=== PATIENT | male | born 1950 | race Caucasian/White ===

== ENCOUNTER 2016-11-23 18:26 | Inpatient (IN) | payer OTHER, MEDICARE ==
[2016-11-23] MEDS ORDERED: NS 0.9% 1000 ML* 2,000 ML IV ONE (18:39)
[2016-11-23] MEDS ORDERED: Morphine INJ* 4 MG/ML 1 ML SYRINGE IV ONE (18:51)
[2016-11-23] MEDS ORDERED: Ketorolac INJ* 30 MG/ML 1 ML VIAL IV PUSH ONE (18:51)
--- NOTE | 2016-11-23 18:53 | ED ---
GI/ HPI - HPI Summary HPI Summary: 66M PMH of DM and HTN presents with left sided flank pain since 8:30 this morning. He states pain is moving down his left side. He denies any nausea or vomiting. He was seen at [facility] and transferred here for further evaluation. The xray at [facility] according to the report shows a 12mm calcified focus within left hemipelvis. could represent phlebolith although left uvj stone cannot be complete excluded. He denies any n/v/d/c. He denies any hematuira, urgency, frequnecy, or dysuria. He has previous surgery "for a blockage of his urine." He does not have a history of kidney tones and has not seen a urologist. He has not taken any pain medication yet. His pain is 5/ 10. His last meal was at 11 today. His stent was placed about 10 years ago and has been stable since. - History of Current Complaint Chief Complaint: EDUrogenitalProblems Time Seen by Provider: 11/23/16 18:37 Stated Complaint: ABD AND LOWER BACK PAIN Pain Intensity: 8 - Allergy/Home Medications Allergies/Adverse Reactions: Allergies Allergy/AdvReac Type Severity Reaction Status Date / Time No Known Allergies Allergy Verified 11/23/16 19:02 Home Medications: Home Medications Atorvastatin* [Lipitor 80 MG*] 80 mg PO DAILY 11/23/16 [History Confirmed ] Cyanocobalamin [B12] 1,000 mcg PO DAILY 11/23/16 [History Confirmed 11/23/16] Finasteride [Proscar] 1 tab PO DAILY 11/23/16 [History Confirmed 11/23/16] Metformin HCl [Metformin HCl ER] 2 tab PO BID 11/23/16 [History Confirmed ] Metoprolol Succinate XL TAB* [Toprol XL TAB*] 100 mg PO DAILY 11/23/16 [History Confirmed 11/23/16] Multiple Vitamin [Multivitamins] 1 cap PO DAILY 11/23/16 [History Confirmed ] Bim-3 Fatty Acids [Fish Oil 500 mg] 1,500 mg PO DAILY 11/23/16 [History Confirmed 11/23/16] amLODIPine/Benazepril 10(NF [Lotrel 10(NF)] 1 tab PO DAILY 11/23/16 [ History Confirmed 11/23/16] PMH/Surg Hx/FS Hx/Imm Hx Endocrine/Hematology History: Reports: Hx Diabetes Denies: Hx Anticoagulant Therapy Cardiovascular History: Reports: Hx Hypertension, Other Cardiovascular Problems/ Disorders - stent placement Infectious Disease History: No Infectious Disease History: Denies: Traveled Outside the [place] in Last 30 Days - Family History Known Family History: Positive: Cardiac Disease - Social History Alcohol Use: Occasionally Substance Use Type: Reports: None Smoking Status (MU): Never Smoked Tobacco Review of Systems Negative: Fever Negative: Chest Pain Negative: Shortness Of Breath Positive: Abdominal Pain. Negative: Vomiting, Diarrhea, Nausea Positive: flank pain All Other Systems Reviewed And Are Negative: Yes Physical Exam Triage Information Reviewed: Yes Vital Signs On Initial Exam: Initial Vitals Temp Pulse Resp BP Pulse Ox 96.8 F 64 17 146/79 98 11/23/16 18:29 11/23/16 18:29 11/23/16 18:29 11/23/16 18:29 11/23/16 18:29 Vital Signs Reviewed: Yes Appearance: Positive: Well-Appearing Skin: Positive: Warm, Dry Head/Face: Positive: Normal Head/Face Inspection Eyes: Positive: Normal, EOMI, PRADIP, Conjunctiva Clear ENT: Positive: Normal ENT inspection, Pharynx normal, TMs normal Respiratory/Lung Sounds: Positive: Clear to Auscultation, Breath Sounds Present Cardiovascular: Positive: Normal, RRR Abdomen Description: Positive: Soft, CVA Tenderness (L), Other: - tenderness on left side of abdomen, Bowel Sounds: Positive: Present Diagnostics - Vital Signs Vital Signs Temp Pulse Resp BP Pulse Ox 11/23/16 18:45 97.4 F 62 21 131/72 97 11/23/16 18:29 96.8 F 64 17 146/79 98 - Laboratory Result Diagrams: 11/23/16 18:57 11/23/16 18:57 Lab Statement: Any lab studies that have been ordered have been reviewed, and results considered in the medical decision making process. - CT abd CT Interpretation: Positive (See Comments) - IMPRESSION: 1. THERE IS A 1 CM CALCULUS AT THE LEFT URETEROVESICAL JUNCTION CAUSING SEVERE HYDRONEPHROSIS. THERE IS AN ADDITIONAL CALCULUS IN THE LEFT KIDNEY. 2. HEPATOSPLENOMEGALY AND HEPATIC STEATOSIS. 3. CHOLELITHIASIS. 4. FINDINGS CONSISTENT WITH OLD GRANULOMATOUS DISEASE IN THE CHEST, LIVER AND SPLEEN. CT Interpretation Completed By: Radiologist Re-Evaluation - Re-Evaluation First Eval Re-Evaluation Time: 20:16 Change: Improved Comment: pain is 2/10. GIGU Course/Dx - Course Course Of Treatment: 66M PMH of DM and HTN presents with left sided flank pain since 8:30 this morning. He states pain is moving down his left side. He denies any nausea or vomiting. He was seen at [facility] and transferred here for further evaluation. The xray at [facility] according to the report shows a 12mm calcified focus within left hemipelvis. could represent phlebolith although left uvj stone cannot be complete excluded. He denies any n/v/d/c. He denies any hematuira, urgency, frequnecy, or dysuria. on exam has CVA tenderness left and LUQ and LLQ pain. spoke with dr burk recommends CT for imaging as xray nonspecfic. Ct shows 1cm calcus at UVJ with severe hydronephrosis. wbc 10.8, u/a blood no infection. Dr Burk recommends admission to get cleared for surgery tomorrow. dr perry agrees to admission. patient understands and agrees with plan. - Diagnoses Differential Diagnoses - Male: Pyelonephritis, Ureteral Calculi, Urinary Tract Infection Provider Diagnoses: Kidney stone - Physician Notifications Discussed Care Of Patient With: dr burk Time Discussed With Above Provider: 20:24 - have hospitalist admit to clear for surgery tomorrow for stone Discharge - Discharge Plan Condition: Stable Disposition: ADMITTED TO [facility]
[2016-11-23 19:05] LABS: Hematocrit 42 % (42-52); Hemoglobin 14.4 g/dl (14.0-18.0); Mean Corpuscular HGB Conc 34 g/dl (31-36); Mean Corpuscular Hemoglobin 31 pg (27-31); Mean Corpuscular Volume 89 fL (80-94); Mean Platelet Volume 9 um3 (7.4-10.4); Red Blood Count 4.71 10^6/ul (4.0-5.4); Red Cell Distribution Width 14 % (10.5-15); White Blood Count 10.8 10^3/ul (3.5-10.8)
[2016-11-23 19:21] LABS: Albumin 4.3 g/dL (3.2-5.2); BUN/Creatinine Ratio 20.7 (8-20); Calcium 9.5 mg/dL (8.6-10.3); EGFR African American 105.9 (>60); EGFR Non-African American 82.3 (>60); Globulin 3.2 g/dL (2-4); Potassium 4.3 mmol/L (3.5-5.0); Total Bilirubin 0.7 mg/dL (0.2-1.0); Total Protein 7.5 g/dL (6.4-8.9)
[2016-11-23 19:38] LABS: Urine Bacteria Absent (Absent); Urine Bilirubin Negative (Negative); Urine Glucose Negative (Negative); Urine Nitrite Negative (Negative)
--- NOTE | 2016-11-23 19:59 | RAD ---
INDICATION: Left-sided flank pain. COMPARISON: There are no prior studies available for comparison. TECHNIQUE: A CT scan of the abdomen and pelvis was performed without intravenous or oral contrast. Contiguous axial sections were obtained from the lung bases through the symphysis pubis. Images were reconstructed in the coronal and sagittal planes. FINDINGS: There are small calcified nodules present in both lower lobes most consistent with old granulomatous disease. There is mild dependent bilateral lower lobe subsegmental atelectasis. No pleural effusion is present. The liver and spleen are enlarged. There are several small calcifications within both the liver and spleen also most consistent with old granulomatous disease. The liver is decreased in attenuation consistent with fatty infiltration. There are small calcified gallstones present. No gallbladder wall thickening or pericholecystic fluid is present. The pancreas appears to be within normal limits. The adrenal glands appear to be within normal limits. There is a calculus in the midportion of the left kidney measuring 0.4 cm in size. The left kidney is enlarged. There is perinephric stranding. There is marked dilatation of the left renal calyces, pelvis and ureter to the level of the ureterovesical junction. At that level there is a 1.0 cm calculus which is causing severe hydronephrosis. There is mild dilatation of the right renal pelvis and dilatation of the distal right ureter although no additional calculi are seen. The aorta is normal in caliber with moderate calcific plaque present. No significant enlarged retroperitoneal lymph nodes are seen. The stomach, small and large bowel appear nondistended. The appendix is within normal limits. There is moderate descending and sigmoid diverticulosis. There is no evidence for diverticulitis or colitis. No free intraperitoneal air or fluid is seen. No significant focal osseous abnormality is seen. IMPRESSION: 1. THERE IS A 1 CM CALCULUS AT THE LEFT URETEROVESICAL JUNCTION CAUSING SEVERE HYDRONEPHROSIS. THERE IS AN ADDITIONAL CALCULUS IN THE LEFT KIDNEY. 2. HEPATOSPLENOMEGALY AND HEPATIC STEATOSIS. 3. CHOLELITHIASIS. 4. FINDINGS CONSISTENT WITH OLD GRANULOMATOUS DISEASE IN THE CHEST, LIVER AND SPLEEN.
[2016-11-23] MEDS ORDERED: Morphine INJ* 2 MG/ML 1 ML SYRINGE IV PRN (20:47)
[2016-11-23] MEDS ORDERED: Ondansetron INJ* 2 MG/ML VIAL IV PRN (20:47)
[2016-11-23] MEDS ORDERED: cefTRIAXone VIAL(*) 1,000 MG in NS 0.9% 50 ML* 50 ML IVPB SCH (20:49)
[2016-11-23] MEDS ORDERED: Dextrose 50% Syringe 50 ML* 25 GM/50 ML SYRINGE IV PUSH PRN (21:07)
[2016-11-23] MEDS: NS 0.9% 1000 ML* 1,000 ML IV SCH (22:19)
[2016-11-23] MEDS: Heparin VIAL(*) 5000 UNITS/ML VIAL (FIVE THOUSAND) SUBCUT SCH (23:59)
--- NOTE | 2016-11-24 01:54 | HP ---
CC: Dr. Stacy Avila; Dr. Prashant Alonzo * HISTORY AND PHYSICAL: DATE OF ADMISSION: 11/23/16 CHIEF COMPLAINT: Flank pain. HISTORY OF PRESENT ILLNESS: The patient is a 66-year-old gentleman who said at 9:30 this morning, he was at [employer] when he started having a " wicked pain" on the left side in his back. It was continuous. At its worse, it was about 8.5/10 in severity. It was always there but moved over from the back to the front. He did not know if there was blood in his urine. He went to [facility] in [place], but unfortunately he had no doctor available to he came over to [facility] for further evaluation. In the ED, the patient does have a CAT scan of the abdomen and pelvis which did show a 1 cm stone with severe hydronephrosis of the left kidney. He denies any fevers or chills. No nausea or vomiting. The pain is under better control now with morphine. PAST MEDICAL HISTORY: Significant for hypertension, hyperlipidemia, diabetes mellitus, coronary artery disease, status post stent placement over 10 years ago. PAST SURGICAL HISTORY: Significant for carpal tunnel surgery, bilateral rotator cuff repair of his right shoulder, problem with requiring urethral surgery years ago. CURRENT MEDICATIONS: As follows: 1. Metformin ER 500 mg 2 tabs twice daily. 2. Finasteride 5 mg daily. 3. Vitamin B12 1000 mcg daily. 4. Lipitor 80 mg daily. 5. Multivitamin 1 capsule daily. 6. Metoprolol succinate 100 mg daily. 7. Amlodipine/benazepril 10/40 one tablet daily. 8. [place]-3 fatty acid 1500 mg daily. ALLERGIES: He has no known drug allergies. FAMILY HISTORY: Mother at 73 of a CVA. Father at 73 of a broken heart. SOCIAL HISTORY: No tobacco. Social alcohol. No recreational drug use. 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 He is . He has 3 children. His , Leslie Moreno, is his healthcare proxy. REVIEW OF SYSTEMS: A 14-point review of systems was completed with the patient. All pertinent positives and negatives in the history of present illness , otherwise negative. PHYSICAL EXAMINATION GENERAL: Pleasant gentleman, lying in bed, in no acute distress. VITAL SIGNS: Blood pressure 118/55, pulse oxygenation 96%, respiratory rate 16 breaths per minute, heart rate 68 beats per minute, and temperature 97.4 degrees. HEENT: Normocephalic, atraumatic. Pupils are equal, round, and reactive to light. Moist mucous membranes. NECK: Supple. No JVD, bruits, palpable thyroid, or lymphadenopathy. CHEST: Clear to auscultation and percussion bilaterally. CARDIOVASCULAR: S1 and S2 appreciated. Regular rate and rhythm. ABDOMEN: Positive bowel sounds in all 4 quadrants. Soft, nontender, nondistended. No hepatosplenomegaly. EXTREMITIES: No cyanosis, clubbing, or edema. +2 peripheral pulses bilaterally. NEUROLOGIC: Alert and oriented x3. Moves all extremities. SKIN: No rashes or abnormalities. LABORATORY DATA: White count 10.8, hemoglobin 14.4, hematocrit 42, platelets 221. Sodium is 137, potassium 4.3, chloride 102, CO2 27, BUN 19, creatinine 0.92 , glucose is 130. Urinalysis has +3 blood in it, +[address] of the abdomen and pelvis was interpreted by Radiology as 1 cm calculus at the left ureteral junction causing severe hydronephrosis. There is an additional calculus in the left kidney, hepatosplenomegaly and hepatic steatosis, cholelithiasis. Findings consistent with disease of the chest, liver, and spleen. ASSESSMENT AND PLAN: 1. Nephrolithiasis with hydronephrosis. Placed the patient on normal saline at 100 cc an hour, morphine p.r.n. for pain, Zofran p.r.n. for nausea. Urology did see in the a.m. for stent placement. 2. Diabetes mellitus. Hold metformin, finger sticks with sliding scale insulin. 3. Hyperlipidemia, stable. Continue atorvastatin 80 mg a day. 4. Hypertension. Adequate control. Continue amlodipine, benazepril, and metoprolol. 5. Coronary artery disease, stable, continue with current regimen. 6. DVT prophylaxis. Sequential compression stockings with blood in his urine. 7. The patient is a full code. TIME SPENT: Over 75 minutes were spent on this H and P, more than 40 minutes of which was spent in direct [id number] contact with the patient in evaluation , physical exam, counseling, and coordination of care. [id number]/[facility] #: [id number] CHAD
[2016-11-24] MEDS: Insulin LISPRO* 1 UNITS UNIT SUBCUT SCH ×3 (06:01→12:44)
[2016-11-24] MEDS ORDERED: amLODIPine TAB* 5 MG PO SCH (09:00)
[2016-11-24] MEDS ORDERED: Lisinopril TAB* 10 MG PO SCH (09:00)
[2016-11-24] MEDS ORDERED: Atorvastatin* 80 MG TAB PO SCH (09:00)
[2016-11-24] MEDS ORDERED: Metoprolol Succinate XL TAB* 100 MG PO SCH (09:00)
[2016-11-24] MEDS ORDERED: Finasteride TAB* 5 MG PO SCH (09:00)
[2016-11-24] MEDS: Heparin VIAL(*) 5000 UNITS/ML VIAL (FIVE THOUSAND) SUBCUT SCH ×2 (09:47→12:25)
[2016-11-24] MEDS: NS 0.9% 1000 ML* 1,000 ML IV SCH (09:49)
--- NOTE | 2016-11-24 12:20 | PN ---
Subjective Date of Service: 11/24/16 Interval History: HOSPITALIST PROGRESS NOTE Patient seen and examined at bedside. He feels better today. Received Morphine around 3AM and pain has been controlled since. Denies N/V. No prior episodes of renal colic. Follows regularly with his High Value Associate (Dr. Ly in [place]) and states "everything was fine" on his last visit. Denies CP, palpitations, or exertional dyspnea. Family History: Unchanged from Admission Social History: Unchanged from Admission Past Medical History: Unchanged from Admission Objective Active Medications: Amlodipine Besylate (Norvasc Tab*) 10 mg PO DAILY [facility] Last Admin: 11/24/16 09:52 Dose: 10 mg Atorvastatin Calcium (Lipitor*) 80 mg PO DAILY [facility] Last Admin: 11/24/16 09:53 Dose: 80 mg Dextrose (D50w Syringe 50 Ml*) 12.5 gm IV PUSH .FOR FS < 60 - SS PRN PRN Reason: FS < 60 Finasteride (Proscar Tab*) 5 mg PO DAILY [facility] Last Admin: 11/24/16 09:53 Dose: 5 mg Heparin Sodium (Porcine) (Heparin Vial(*)) 5,000 units SUBCUT Q8HR [facility] Last Admin: 11/24/16 09:47 Dose: Not Given Sodium Chloride (Ns 0.9% 1000 Ml*) 1,000 mls @ 100 mls/hr IV PER RATE [facility] Last Admin: 11/24/16 09:49 Dose: 100 mls/hr Ceftriaxone Sodium 1,000 mg/ (Sodium Chloride) 50 mls @ 200 mls/hr IVPB Q24H [facility] Last Admin: 11/23/16 22:19 Dose: 200 mls/hr Insulin Human Lispro (Humalog*) 0 units SUBCUT Q6HR [facility] PRN Reason: Protocol Last Admin: 11/24/16 06:01 Dose: Not Given Lisinopril (Prinivil Tab*) 40 mg PO DAILY [facility] Last Admin: 11/24/16 09:53 Dose: 40 mg Metoprolol Succinate (Toprol Xl Tab*) 100 mg PO DAILY [facility] Last Admin: 11/24/16 09:53 Dose: 100 mg Morphine Sulfate (Morphine Inj (Syringe)*) 2 mg IV Q2H PRN PRN Reason: PAIN Last Admin: 11/24/16 03:40 Dose: 2 mg Ondansetron HCl (Zofran Inj*) 4 mg IV Q4H PRN PRN Reason: NAUSEA Vital Signs 11/24/16 07:37 Temperature 98.3 F Pulse Rate 77 Respiratory 18 Rate Blood Pressure 128/68 (mmHg) O2 Sat by Pulse 97 Oximetry Oxygen Devices in Use Now: None Appearance: Pleasant morbid obese gentleman lying in bed in NAD. Eyes: No Scleral Icterus Ears/Nose/Mouth/Throat: Mucous Membranes Moist Neck: Trachea Midline Respiratory: Symmetrical Chest Expansion and Respiratory Effort, Clear to Auscultation Cardiovascular: NL Sounds; No Murmurs; No JVD, RRR Abdominal: NL Sounds; No Tenderness; No Distention - obese Extremities: No Edema Neurological: Alert and Oriented x 3, NL Muscle Strength and Tone Lines/Tubes/Other Access: Clean, Dry and Intact Peripheral IV Nutrition: Taking PO's Result Diagrams: 11/23/16 18:57 11/23/16 18:57 Assess/Plan/Problems-Billing Assessment: Mr. Moreno is a 66yo M with PMH of morbid obesity, HTN, HLD, type 2 DM, CAD s/p stent to RCA in 2006, MEREDITH on CPAP, who presented to ED with c/o severe left flank pain, found to have nephrolithiasis with severe hydronephrosis. - Patient Problems (1) Nephrolithiasis Comment: - CT abd/pelvis showed a 1cm calculus at the left UVJ causing severe hydronephrosis. - UA showed hematuria. - No signs of infection at this time. - Urology input appreciated - plan to take to OR today. (2) CAD (coronary artery disease) Comment: - Stable. - Patient has no complaints of chest pain, palpitations, or dyspnea. - Records from [facility] reviewed: echo done 06/22 shows EF 60% with no wall motion abnormalities. Exercise myoview stress test 09/23 was normal, with no evidence of ischemia or infarct. Last seen by his High Value Associate (Dr. Ly) in , felt to be stable. - EKG showed NSR at 80bpm with RBBB, no ST-T changes. No significant changes when compared to prior EKG done at [place]. - RCRI is 2 predicting a 2.4% risk of cardiac complications. - Patient is optmized for proposed procedure. - Continue Atorvastatin and Metoprolol. Aspirin on hold for procedure. (3) Type 2 diabetes mellitus Comment: - Controlled. - Continue Lispro SS. (4) HTN (hypertension) Comment: - Controlled. - Continue Lisinopril, Metoprolol, and Amlodipine. (5) DVT prophylaxis Comment: - SQ heparin. (6) Full code status
[2016-11-24] MEDS ORDERED: Lidocaine 2% PF * 5 ML VIAL ONE (14:37)
[2016-11-24] MEDS ORDERED: Propofol* 10 MG/ML 20 ML BTL IV PUSH ONE (14:37)
[2016-11-24] MEDS ORDERED: Ondansetron INJ* 2 MG/ML VIAL ONE (14:37)
[2016-11-24] MEDS ORDERED: Midazolam* 1 MG/ML 5 ML VIAL (5 MG) ONE (14:37)
[2016-11-24] MEDS ORDERED: Dexamethasone IV* 4 MG/ML 1 ML (4 MG) ONE (14:37)
[2016-11-24] MEDS ORDERED: KETAMINE HCL* 50 MG/ML 10 ML VIAL ONE (14:37)
[2016-11-24] MEDS ORDERED: fentaNYL* 50 MCG/ML 2 ML VIAL (100 MCG VIAL) ONE ×2 (14:37→16:40)
[2016-11-24] MEDS ORDERED: cefTRIAXone(*) 2 GM ADDV.VIAL IVPB ONE (14:57)
[2016-11-24] MEDS ORDERED: Famotidine IV* 10 MG/ML 2 ML (20 mg) IV SLOW PU ONE (15:04)
[2016-11-24] MEDS ORDERED: Famotidine IV* 10 MG/ML 2 ML (20 mg) ONE (15:09)
[2016-11-24] MEDS ORDERED: Iohexol 180 (CONTRAST) 10 ML SDV IV ONE ×3 (15:10→16:37)
[2016-11-24] MEDS ORDERED: EPHEDrine (Pressors)* 50 MG/ML VIAL ONE (16:31)
[2016-11-24] MEDS ORDERED: Iohexol 300 (CONTRAST) 100 ML SDV IV ONE (16:48)
[2016-11-24] MEDS ORDERED: Ketorolac INJ* 30 MG/ML 1 ML VIAL ONE (17:32)
[2016-11-24] MEDS ORDERED: oxyCODONE/Acetamin 5/325 MG* TAB PO PRN (18:00)
[2016-11-24] MEDS ORDERED: fentaNYL* 50 MCG/ML 2 ML VIAL (100 MCG VIAL) IV PRN (18:00)
[2016-11-24 18:34] VITALS: BP 140/73
--- NOTE | 2016-11-24 18:59 | RAD ---
INDICATION: Stent placement. COMPARISON: Correlation is made with a prior CT of the abdomen and pelvis from November 23, 2016. TECHNIQUE: 40 seconds of intermittent fluoroscopic guidance were provided and 9 spot films of the abdomen were obtained. FINDINGS: There is initial opacification of the right renal pelvis and calyces which appear distended consistent with hydronephrosis. There is placement of a double-J stent catheter on that side. There is subsequently opacification of the left renal calyces and collecting system which are distended. There is placement of a double-J stent catheter on that side. IMPRESSION: INTRAOPERATIVE CONTROL FILMS. CPT II Codes: 6045F
--- NOTE | 2016-11-25 03:10 | OP ---
CC: Stacy Avila MD* DATE OF OPERATION: 11/24/16 - ROOM #416 DATE OF : 50 SURGEON: Karsten Burk MD ANESTHESIOLOGIST: Mario Teran MD ANESTHESIA: General. PRE-OP DIAGNOSES: 1. Bilateral hydroureteronephrosis. 2. Distal left ureteral calculus (1.2 cm). POST-OP DIAGNOSES: 1. Right hydroureteronephrosis with right ureterovesical junction obstruction. 2. Left hydroureteronephrosis and 1.2 cm calculus distal left ureter. 3. Changes of Transurethral resection of the prostate. OPERATIVE PROCEDURE: 1. Cystoscopy. 2. Right retrograde pyelography, right ureteroscopy, balloon dilation of right ureterovesical junction, placement of right ureteral stent (8-Micronesian). 3. Left retrograde pyelography, left ureteroscopy and laser lithotripsy of left ureteral calculus, placement of left ureteral stent (8-Micronesian). INDICATIONS FOR PROCEDURE: Mr. Moreno is a 66-year-old white male who presented to the emergency room last night with symptoms of left renal colic and was noted on noncontrast CT of the abdomen and pelvis to have severe left hydroureteronephrosis with tortuosity of the left ureter and 1.2 cm calculus at the left ureterovesical junction. The CT also showed moderate right hydronephrosis with markedly dilated distal right ureter with no calculi noted as a cause of the obstruction. There was no thickening or dilatation of the urinary bladder. Because of the above history and finding, the patient was brought into the operating room for the above procedure. PATHOLOGY: At cystoscopy the penile and bulbar urethra looked normal. The prostatic urethra was wide open, showing changes of TURP, there was regrowth of adenomatous tissue from the Lt lateral lobe. Examination of the bladder showed normal bilateral ureteral orifices. There were no ureteroceles noted. There was some hyperemia and edema of the left trigone overlying the left ureteral orifice. Upon right retrograde pyelography , there was marked dilatation of the right ureter and moderate degree of right hydronephrosis. There seemed to be a functional obstruction at the right ureterovesical junction. No lesion and no calculi were seen on ureteroscopy. The right UVJ dilated easily with the balloon dilator. Upon left ureteroscopy, there was no obstruction noted in the orifice or the UVJ. A 1.2 cm calculus that had the appearance of a calcium oxalate stone was noted in the distal ureter. On retrograde pyelography, there was marked tortuosity and dilatation of the left ureter and severe left hydronephrosis. DESCRIPTION OF PROCEDURE: After successful general anesthesia, the patient was placed in the lithotomy position and was prepped and draped for a cystoscopy. Cystoscopy was performed. The findings in the prostatic urethra and inside the bladder were noted. A flexible tip guidewire was then introduced into the right ureteral orifice. Retrograde pyelography was performed showing the above pathology. With the guidewire in place, a size 6.5 semi-rigid ureteroscope was introduced inside the bladder and then inside the right ureter. The findings in the distal ureter were noted. The ureteroscope was then removed, keeping the guidewire in place. Balloon dilator was introduced over the guidewire and the balloon was inflated dilating the UVJ to 18-Micronesian without difficulty and without any waisting. The balloon was then deflated and removed keeping the guidewire in place. A size 8-Micronesian stent was then placed with the proximal end coiling in renal pelvis and the distal end coiling inside the bladder. Attention was directed towards the left ureter. A flexible tip guidewire was introduced into the left ureter; however, it could not negotiate the tortuosity of the ureter. A glidewire was then introduced and after several attempts was successfully introduced inside the renal pelvis and the tortuosity of the ureter was straightened up. The glidewire was replaced with a guidewire over an open-ended catheter. The size 6.5 semi-rigid urethroscope was then introduced inside the bladder. A flexible tip basket was introduced through the port of the ureteroscope and the flexible tip was passed inside the left ureter and was used as a guide to introduce the ureteroscope without trauma or difficulty. The calculus in the distal ureter was noted. The basket was deployed and the stone was engaged and stabilized to prevent it from proximal migration into the ureter. A size 550 micron laser fiber was introduced through the other port of the ureteroscope and was used to fragment the calculus into multiple pieces. This was done without causing any trauma to the ureteral wall. The stone fragments were then extracted using a basket. Retrograde pyelography was preformed and a size 8-Micronesian stent was then placed with the proximal end coiling in the renal pelvis and the distal end coiling inside the bladder. The stone fragments that had migrated inside the bladder were then extracted and sent for stone analysis. The bladder was then emptied and the scope was removed. The patient tolerated the procedures well and left the operating room in good condition. The plan is to keep the stent in place for about 2 weeks, they would be removed in the office one at a time. [id number]/[facility] #: [id number] [facility]
== END 2016-11-24 18:58 | disposition home or self-care (01) | DRG 446 ==
LOC: ED 18:26 → MED 20:47 → OBSVTOIN 11-24 18:11
PROVIDERS: ADMIT Internal Medicine; ATTEND Urology
PROC: 0TC78ZZ Extirpation of Matter from Left Ureter, Via Natural or Artificial Opening Endoscopic (ICD-10-PCS; 2016-11-24)
PROC: 0T788DZ Dilation of Bilateral Ureters with Intraluminal Device, Via Natural or Artificial Opening Endoscopic (ICD-10-PCS; 2016-11-24)
PROC: BT14YZZ Fluoroscopy of Kidneys, Ureters and Bladder using Other Contrast (ICD-10-PCS; principal; 2016-11-24 15:30)
DX: N13.0 Hydronephrosis with ureteropelvic junction obstruction (principal); I11.9 Hypertensive heart disease without heart failure; I25.10 Atherosclerotic heart disease of native coronary artery without angina pectoris; E11.9 Type 2 diabetes mellitus without complications; N13.2 Hydronephrosis with renal and ureteral calculous obstruction; E78.5 Hyperlipidemia, unspecified; Z79.84 Long term (current) use of oral hypoglycemic drugs; Z95.5 Presence of coronary angioplasty implant and graft; Z79.899 Other long term (current) drug therapy; Z82.3 Family history of stroke
CPT/HCPCS: 36415; 74176; 74420; 80053; 81003; 81015; 82365; 83605; 85025; 86141; 88300; 93005; A9270-GY; J0696; J1100; J1644; J1885; J2250; J2270; J2405; J2704; J3010

== ENCOUNTER 2017-11-20 07:46 | Emergency (ER) | payer OTHER ==
[2017-11-20] MEDS ORDERED: Ketorolac INJ* 30 MG/ML 1 ML VIAL IV ONE (08:32)
[2017-11-20] MEDS ORDERED: Ondansetron INJ* 2 MG/ML VIAL IV ONE (08:32)
[2017-11-20] MEDS ORDERED: NS 0.9% 1000 ML* 2,000 ML IV ONE (08:32)
--- NOTE | 2017-11-20 08:46 | ED ---
Abdominal Pain/Male - HPI Summary HPI Summary: This is lucho Diaz documenting for attending Gerri Victoria M.D. Patient is a 67 y/o M w/ c/o constant left sided flank pain starting 1.5 weeks ago. Patient's , Leslie, was present in room. On triage, it is reported that pain has worsened this morning. He reports left flank pain as most active and notes intermittent episodes of right sided flank pain. He claims Hx of kidney stone about a year ago. Patient states medical record consultant noted the presence of smaller calculi at this time a year ago but they were still up in the kidney. Pain in the room is rated 5/10 and he notes deep breathing aggravates pain to 8/10. Left flank pain is reported to radiate to left shoulder as well. Patient denies chest pain, SOB, fever, cough, constipation, nausea, vomiting, dysuria and hematuria. Last bowel movement was today. According to , patient had heart stent placed in 1999. She states patient has not experienced cardiac problems since. No allergies are reported. Arm surgery as a child is reported as well. Patient has PMHx of HTN and is diabetic. He takes metformin pills and does not check sugar at home. On triage, it is noted otc pain meds were taken SHANK STITCHER. He notes Hx of kidney stones and PSHx of lithotripsy for kidney stone last year. FMHx of brother with kidney stones is claimed. He also states he was experiencing blockage in his urinary tract which was removed by laser. He states Dr. Araiza in [place] performed this surgery. Patient has seen Dr. Alonzo and Dr. Burk. In room, vitals were 97% O2 sat, 145/80 BP, 62 heart rate. Evaluation of kidney stones, in pt with known stones, trying to spare radiation, by starting with ultrasound and KUB, was discussed with patient's in the room. Dr. Avila is PCP. No allergies noted. Home medications reported are as follows: Aleve 220 mg Q12HR 11/20/17 [History Confirmed 11/20/17] Gabapentin 200 mg TID 11/20/17 [History Confirmed 11/20/17] Hydrochlorothiazide 12.5 mg DAILY 11/20/17 [History Confirmed 11/20/17] Nexium 1 tab DAILY 11/20/17 [History Confirmed 11/20/17] I, Dr. Victoria, personally performed the services described in this documentation as scribed in my presence and it is both accurate and complete. - History of Current Complaint Chief Complaint: EDFlankPain Stated Complaint: FLANK PAIN Time Seen by Provider: 11/20/17 08:23 Hx Obtained From: Patient Onset/Duration: Gradual Onset, Lasting Weeks - 1.5 weeks ago, Worse Since - pain worsened this morning Timing: Constant - at left flank, Intermittent - at right flank Severity Initially: Moderate Severity Currently: Severe - 5/10 in room, 8/10 with deep breaths Pain Intensity: 5 Pain Scale Used: 0-10 Numeric - 5/10 in room, 8/10 with deep breaths Location: Flank - constant at left flank, intermittent at right flank Radiates: Yes Radiates to: Other - left flank pain radiates to left shoulder Aggravating Factor(s): Deep Breaths Alleviating Factor(s): Nothing Associated Signs And Symptoms: Negative: Constipation, Urinary Symptoms, Nausea , Vomiting - Allergies/Home Medications Allergies/Adverse Reactions: Allergies Allergy/AdvReac Type Severity Reaction Status Date / Time No Known Allergies Allergy Verified 11/20/17 08:15 Home Medications: Home Medications Gabapentin 200 mg TID 11/20/17 [History Confirmed 11/20/17] Hydrochlorothiazide 12.5 mg DAILY 11/20/17 [History Confirmed 11/20/17] Nexium 1 tab DAILY 11/20/17 [History Confirmed 11/20/17] PMH/Surg Hx/FS Hx/Imm Hx Endocrine/Hematology History: Reports: Hx Diabetes Denies: Hx Anticoagulant Therapy, Hx Sickle Cell Disease, Hx Anemia Cardiovascular History: Reports: Hx Hypertension, Other Cardiovascular Problems/ Disorders - stent placement Denies: Hx Aneurysm, Hx Angina, Hx Angioplasty, Hx Cardiac Arrest, Hx Cardiomegaly Respiratory History: Denies: Hx Asthma, Hx Chronic Bronchitis, Hx Chronic Obstructive Pulmonary Disease (COPD), Hx Cystic Fibrosis GI History: Denies: Hx Cirrhosis, Hx Crohn's Disease, Hx Gastroesophageal Reflux Disease History: Reports: Hx Kidney Stones Denies: Hx Acute Renal Failure Musculoskeletal History: Denies: Hx Arthritis, Hx Back Problems, Hx Bursitis Sensory History: Reports: Hx Contacts or Glasses Denies: Hx Eye Injury, Hx Hearing Aid Opthamlomology History: Reports: Hx Contacts or Glasses Denies: Hx Eye Injury Neurological History: Denies: Hx Dementia, Hx Developmental Delay, Hx Headaches, Hx Migraine, Hx Nerve Disease, Hx Seizures, Hx Spinal Cord Injury, Hx Transient Ischemic Attacks (TIA) Psychiatric History: Denies: Hx Depression - Surgical History Surgery Procedure, Year, and Place: cardiac stent - 1999,kidney stones,right arm ; - Immunization History Immunizations Up to Date: Yes Infectious Disease History: No Infectious Disease History: Denies: Hx Clostridium Difficile, Hx Hepatitis, Hx Human Immunodeficiency Virus (HIV), Hx of Known/Suspected MRSA, Hx Shingles, Hx Tuberculosis, History Other Infectious Disease, Traveled Outside the [place] in Last 30 Days - Family History Known Family History: Positive: Cardiac Disease, Renal Disease - brother had kidney stones - Social History Lives: With Family Alcohol Use: Occasionally Substance Use Type: Reports: None Smoking Status (MU): Never Smoked Tobacco Review of Systems Negative: Fever Negative: Chest Pain Negative: Shortness Of Breath, Cough Positive: Other - NEGATIVE: constipation . Negative: Vomiting, Nausea Genitourinary: Other - NEGATIVE: dysuria, hematuria Positive: flank pain - constant left side flank pain, intermittent right side flank pain Positive: Other - left shoulder pain Skin: Negative Neurological: Negative Psychological: Normal All Other Systems Reviewed And Are Negative: Yes Physical Exam Vital Signs On Initial Exam: Initial Vitals Temp Pulse Resp BP Pulse Ox 97.8 F 63 18 131/63 97 11/20/17 07:55 11/20/17 07:55 11/20/17 07:55 11/20/17 07:55 11/20/17 07:55 Appearance: Positive: Ill-Appearing, Pain Distress, Obese Skin: Positive: Warm, Skin Color Reflects Adequate Perfusion, Dry Head/Face: Positive: Normal Head/Face Inspection Eyes: Positive: EOMI, Conjunctiva Clear ENT: Positive: Normal ENT inspection Neck: Positive: Supple Respiratory/Lung Sounds: Positive: Clear to Auscultation, Breath Sounds Present Cardiovascular: Positive: RRR, Pulses are Symmetrical in both Upper and Lower Extremities, S1, S2 Abdomen Description: Positive: Nontender, No Organomegaly, Soft, CVA Tenderness (L) Bowel Sounds: Positive: Present Musculoskeletal: Positive: Strength/ROM Intact Neurological: Positive: Sensory/Motor Intact, Alert, Oriented to Person Place, Time, Facial Symmetry, Speech Normal Psychiatric: Positive: Normal Diagnostics - Vital Signs Vital Signs Temp Pulse Resp BP Pulse Ox 11/20/17 08:13 66 145/80 96 11/20/17 08:12 63 97 11/20/17 07:55 97.8 F 63 18 131/63 97 - Laboratory Result Diagrams: 11/20/17 08:50 11/20/17 08:52 Lab Statement: Any lab studies that have been ordered have been reviewed, and results considered in the medical decision making process. - Radiology Abdomen X-Ray Xray Interpretation: No Acute Changes Radiology Interpretation Completed By: Radiologist - nonobstructive bowel gas pattern, large amount of stool throughout the colon. evaluation of nephrolithiasis is limited by overlying bowel. This report was reviewed by ED physician. Lumbar Spine X-Ray Xray Interpretation: Positive (See Comments) Radiology Interpretation Completed By: Radiologist - Mild to moderate diffuse degenrative disc disease. This report was reviewed by ED physician. CXR Xray Interpretation: No Acute Changes Radiology Interpretation Completed By: Radiologist - No active cardiopulmonary disease. This report was reviewed by ED physician. - Ultrasound No standard instances Ultrasound Interpretation: No Acute Changes Ultrasound Interpretation Completed By: Radiologist - Renal US Impressions: nonobstructive bowel gas pattern, large amount of stool throughout the colon. evaluation of nephrolithiasis is limited by overlying bowel. This report was reviewed by ED physician. Re-Evaluation - Re-Evaluation First Eval Re-Evaluation Time: 13:50 Change: Improved Comment: Patient reports the presence of left flank pain and left paraspinus region. He denies cough but notes deep breaths cause left flank pain still. Patient notes Hx of arthritis. He notes toradol helped with pain somewhat. Discussed getting CXR and lumbar spine X-ray to check for additional medical problems. Patient is agreeable with plan. Second Eval Re-Evaluation Time: 16:10 Change: Improved Comment: Flexeril helped his pain. Discussed xray results and plan for treatment and follow up. Pt and agree with discharge. Abdominal Pain Fem Course/Dx - Course Course Of Treatment: 67 yo M with hx kidney stones, c/o left flank pain x 1.5 weeks, evaluated with KUB and US to spare radiation, with no hydronephrosis and no nephrolithiasis identified. Discussed doing CT but on further evaluation and pt prefer to hold off on CT. Labs are unremarkable. Urine is clear. Ordered LS spine xrays and CXR. LS spine showed degenerative disc disease, CXR is NAD. Will treat the left flank pain as musculoskeletal, with toradol (which he states helped) and flexeril. Pt will follow up with Dr. Avila in 2-3 days , return to the ED if new or worsening sxs. - Diagnoses Differential Diagnosis/HQI/PQRI: ACS, AMI, Bowel Obstruction, Constipation, Diverticulitis, Other - musculoskeletal Provider Diagnoses: Left flank pain, Degenerative disc disease Discharge - Sign-Out/Discharge Documenting (check all that apply): Patient Departure - discharge - Discharge Plan Condition: Stable Disposition: HOME Prescriptions: Cyclobenzaprine TAB* [Flexeril 10 MG TAB*] 10 mg PO TID PRN #30 tab PRN Reason: Pain Ketorolac TAB * [Toradol TAB *] 10 mg PO Q6H #20 tab Patient Education Materials: Flank Pain (ED), Degenerative Disc Disease (ED) Forms: *Work Release Referrals: Stacy Avila MD [Primary Care Provider] - 2 Days Additional Instructions: We have given you copy of all of your labs and Ultrasound and xrays today. Your pain was improved with toradol (ketorolac) 30mg IV. We have prescribed this, but you should take it sparingly. It will not make you drowsy. We also gave you flexeril 10mg orally with some improvement. We prescribed this also, but this can make you drowsy so you should not take it within 8 hours of having to work. You may continue your tylenol arthritis. Do not take ibuprofen or aspirin or any drug in that class while you are taking the toradol. We did not find a definite cause for your pain, but it was not a kidney stone, and it was not pneumonia or pleurisy. Watch for a rash, it may be shingles. Follow up with primary care physician, Dr. Avila, in 1-2 days. Return to ED for any new or worsening symptoms. - Billing Disposition and Condition Condition: STABLE Disposition: Home
[2017-11-20 09:07] LABS: ABS Basophils 0.1 10^3/ul (0-0.2); ABS Eosinophils 0.2 10^3/ul (0-0.6); ABS Lymphocytes 2.1 10^3/ul (1.0-4.8); ABS Neutrophils 6.5 10^3/ul (1.5-7.7); ABS Nucleated RBC 0 10^3/ul; Eosinophil % 1.7 % (0-6); Hematocrit 40 % (42-52); Hemoglobin 13.7 g/dl (14.0-18.0); Lymphocyte % 21.4 % (25-47); Mean Corpuscular HGB Conc 35 g/dl (31-36); Mean Corpuscular Hemoglobin 31 pg (27-31); Mean Corpuscular Volume 88 fL (80-94); Mean Platelet Volume 9.2 um3 (7.4-10.4); Nucleated Red Blood Cells % 0; Platelet Count 224 10^3/ul (150-450); Red Blood Count 4.51 10^6/ul (4.00-5.40); Red Cell Distribution Width 14 % (10.5-15); White Blood Count 9.9 10^3/ul (3.5-10.8)
[2017-11-20 09:10] LABS: Urine Appearance Clear; Urine Blood Negative (Negative); Urine Color Yellow; Urine Ketones Negative (Negative); Urine Protein Negative (Negative); Urine Specific Gravity 1.017 (1.010-1.030); Urine Urobilinogen Negative (Negative)
[2017-11-20 09:26] LABS: EGFR Non-African American 82.1 (>60)
--- NOTE | 2017-11-20 09:41 | RAD ---
HISTORY: hx kidney stones, left flank pain, hx lithotripsy COMPARISONS: May 12, 2017 VIEWS: Frontal views of the abdomen. FINDINGS: BOWEL: There is a nonobstructive bowel gas pattern. There is a large amount of stool within the colon. CALCULI: There are no abnormal calculi. Evaluation is limited by overlying bowel. BONES AND SOFT TISSUES: There are no osseous abnormalities. OTHER FINDINGS: The lung bases are clear. There is no subphrenic gas. IMPRESSION: NONOBSTRUCTIVE BOWEL GAS PATTERN. LARGE AMOUNT OF STOOL THROUGHOUT THE COLON. EVALUATION OF NEPHROLITHIASIS IS LIMITED BY OVERLYING BOWEL.
--- NOTE | 2017-11-20 10:22 | RAD ---
INDICATION: Left flank pain COMPARISON: None TECHNIQUE: Longitudinal and transverse scans of the left kidney were obtained. FINDINGS: Left kidney: The left kidney is normal in size and echogenicity. There may be a tiny parapelvic cyst. There are no kyphotic. There is no evidence of hydronephrosis. The left kidney measures 1.5 x 5.8 x 6.0 cm . Other: None IMPRESSION: NO HYDRONEPHROSIS OR RENAL CALCULI.
[2017-11-20] MEDS ORDERED: Cyclobenzaprine TAB* 10 MG PO ONE (14:08)
--- NOTE | 2017-11-20 14:57 | RAD ---
HISTORY: left flank pain, pain with deep breath COMPARISONS: None VIEWS: 4: Frontal dual-energy and lateral views of the chest. FINDINGS: CARDIOMEDIASTINAL SILHOUETTE: The cardiomediastinal silhouette is normal. EMANUEL: The emanuel are normal. PLEURA: The costophrenic angles are sharp. No pleural abnormalities are noted. LUNG PARENCHYMA: There is calcified granuloma of the right midlung. ABDOMEN: The upper abdomen is clear. There is no subphrenic gas. BONES AND SOFT TISSUES: Degenerative changes are noted along the spine. OTHER: None. IMPRESSION: NO ACTIVE CARDIOPULMONARY DISEASE.
--- NOTE | 2017-11-20 15:00 | RAD ---
INDICATION: Left flank pain. COMPARISON: There are no prior studies available for comparison. TECHNIQUE: 5 views of the lumbar spine were obtained including lateral, oblique, AP and a coned-down lateral view of the lumbar sacral junction. FINDINGS: There is a mild lumbar scoliosis convex toward the left side. The vertebra are otherwise in normal alignment. No fracture is seen. There is mild to moderate diffuse degenerative disc disease. IMPRESSION: MILD TO MODERATE DIFFUSE DEGENERATIVE DISC DISEASE.
[2017-11-20 16:27] VITALS: BP 123/72
== END 2017-11-20 16:27 | disposition home or self-care (01) ==
LOC: ED 07:46
DX: R10.9 Unspecified abdominal pain (principal); M51.37 Other intervertebral disc degeneration, lumbosacral region; I10 Essential (primary) hypertension; R73.03 Prediabetes; M19.90 Unspecified osteoarthritis, unspecified site; Z79.84 Long term (current) use of oral hypoglycemic drugs; Z87.442 Personal history of urinary calculi; Z84.1 Family history of disorders of kidney and ureter
CPT/HCPCS: 36415; 71046; 72110; 74018; 76775; 80053; 81003; 83605; 85025; 86140; 96361; 96374; 96375; 99284; A9270-GY; J1885; J2405

== ENCOUNTER 2018-04-16 19:26 | Emergency (ER) | payer OTHER ==
--- OUTSIDE RECORDS SUMMARY | 2018-04-16 19:43 | XMS REPORT | Continuity of Care Document ---
:1950 External Reference #:[id number] Author Name Estelle Ly MD Address [address] [place] [address] Care Team Providers Name Role Phone Stacy Avila M.D. 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 Active Onset: 04/19/2011 Type 2 diabetes mellitus Lucita wSanson M.D. Active Onset: 10/14/2010 Impaired fasting glycaemia Lucita Swanson M.D. Active Onset: 10/14/2010 Obesity Lucita Swanosn M.D. Active Onset: 10/14/2010 Hyperlipidemia Lucita Swanson M.D. 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 Active Onset: 10/14/2010 Patient post percutaneous transluminal Lucita Swanson M.D. Active coronary angioplasty Onset: 10/14/2010 Chronic ischemic heart disease Lucita Swanson M.D. Active Family History Date Family Member(s) Problem(s) Comments General Stroke Mother had a stroke in her 70's and a brother had TIA in his 60's. Father Depression Mother Stroke Social History Type Date Description Comments Sex Unknown Tobacco Use Start: Unknown Never Smoked Cigarettes ETOH Use Occassional Social Drinker Recreational Drug Use Denies Drug Use Tobacco Use Start: Unknown Patient has never smoked Smoking Status Reviewed: 03/23/18 Patient has never smoked Allergies, Adverse Reactions, Alerts Description No Known Drug Allergies Medications Medication Date Status Form Strength Qnty SIG Indications Ordering Provider Hydrochlorothiazide 03/09 Active Tablets 12.5mg 90tab 1 by Felizen s mouth S. Agno every MD day Amlodipine 03/11 Active Capsules 10-40mg 90cap take 1 Z95.5 Felizen Besylate/Benazepril /2010 s capsule S. Agno HCL daily Nitrostat 01/22 Active Tablets 0.4mg 25tab 1 tab sl Felizen /2006 Sub s as S. Agno needed MD for cp as directed . Metformin HCL ER Active Tablets 500mg 2bid Unknown / ER 24HR Aspirin Active Tablets 81mg 1 po qd Metoprolol Succinate Active Tablets 100mg 1 1/2 po Unknown ER / ER 24HR qd Atorvastatin Calcium Active Tablets 80mg 90tab take 1 Godish s tablet , Mary by mouth Sanjeev Murphy every night at bedtime Centrum Silver Ultra Active Tablets 1 by Unknown Mens mouth every day Finasteride Active Tablets 5mg every morning Fish Oil Burp-Less Active Capsules 1500mg Qday Hydrochlorothiazide 10/27 Hx Tablets 25mg 90tab qd Lucita Amador Tammy Contreras M.D. 07/09 Furosemide 03/11 Hx Tablets 40mg 90tab Take 1 V45.82 Unknown s Capsule - Daily 07/09 Amlodipine 03/11 Hx Capsules 10-40mg 90cap Take 1 V45.82 Unknown Besylate/Benazepril s Capsule HCL - Daily 07/09 Tekturna 10/14 Hx Tablets 150mg 30tab 1 po qd Lucita Y. Tammy Contreras M.D. 04/19 Metoprolol Succinate 09/27 Hx Tablets 50mg 135ta Take One Lucita Y. ER 24HR bs And Tammy Swanson One-Half Sanjeev 07/09 Daily Lotrel 01/29 Hx Capsules 10-40mg 90cap 1 po qd V45.82 Lucita Y. Tammy Contreras M.D. 03/11 Lotrel 01/15 Hx Capsules 5-40mg 30cap po q day Tammy Contreras M.D. 01/29 Lotrel 01/15 Hx Capsules 5-40mg 30cap 1 Cap PO V45.82 s Tammy Bedolla M.D. 01/29 Simvastatin 03/08 Hx Tablets 80mg 90tab 1 tab po Rayna s [facility] Marylin Munoz R.N., 10/27 MSN, Plavix 01/22 Hx Tablets 75mg 90tab 1 tab po Godishala /2006 s Mary vargas M.D. 01/15 Toprol XL 15 Hx Tablets 50mg 135ta 1& /2 ER 24HR bs Tab PO Tammy Swanson M.D. 09/27 Lisinopril & HCTZ Hx Tablets 20mg;12.5 90tab 1 tab po Godishala / mg s qd , Mary Murphy M.D. 01/15 Pravastatin Hx Tablets 80mg 90tab 1 Tab PO Lucita Y. / s Tammy Putnam M.D. 03/08 Ibuprofen Hx Tablets 800mg PO tid Unknown / - 01/22 Asa 00/00 Hx 325mg 1 tab po Unknown / qd - 04/19 Androgel Hx Gel 5gm 1 PKG qd / - 04/26 Nexium Hx Capsules 40mg 1 cap po Unknown / DR qd - 08/07 Centrum Silver 00/00 Hx Tablets 1 Tab PO Unknown / qd - 04/19 Celebrex Hx Capsules 200mg 30cap 1 po qd Unknown / s - 04/19 Tramadol HCL Hx Tablets 50mg 30tab take 1 Unknown s tablet - every 6 04/19 hrs needed. Tamsulosin HCL Hx Capsules 0.4mg 1 tab Unknown / every pm - 07/09 Vitamin B-12 Hx Tablets 1000mcg Daily Unknown - 03/17 Finasteride Hx Tablets 5mg qam Unknown / - 08/07 Rapaflo 00 Hx Capsules 8mg 1 PO qd Unknown / - 10/16 Vitamin D / Hx Tablets 1000Unit 1 po qd / - 03/09 Rapaflo 0000 Hx Capsules 8mg 1 Cap PO Unknown / qd - 07/08 Immunizations CPT Code Status Date Vaccine Lot # 14618 Given 12/14/2016 Flu Vaccine 14460 Given 04/26/2016 Flu Vaccine 53583 Given 01/08/2014 Flu Vaccine 86722 Given Unknown Flu Vaccine Vital Signs Date Vital Result Comment 03/23/2018 9:44am BP Systolic 124 mmHg BP Diastolic 68 mmHg Heart Rate 63 /min Respiratory Rate 18 /min Height 70 inches 5'10" Weight 285.00 lb O2 % BldC Oximetry 97 % BMI (Body Mass Index) 40.9 kg/m2 BSA (Body Surface Area) 2.43 m2 09/21/2017 9:44am BP Systolic 124 mmHg BP Diastolic 74 mmHg Heart Rate 70 /min Respiratory Rate 20 /min Height 70 inches 5'10" Weight 271.00 lb O2 % BldC Oximetry 95 % BMI (Body Mass Index) 38.9 kg/m2 BSA (Body Surface Area) 2.38 m2 03/23/2017 9:49am BP Systolic 140 mmHg BP Diastolic 86 mmHg BP Systolic Recheck 120 mmHg BP Diastolic Recheck 75 mmHg Heart Rate 71 /min Respiratory Rate 20 /min Height 70 inches 5'10" Weight 300.00 lb O2 % BldC Oximetry 95 % BMI (Body Mass Index) 43.0 kg/m2 BSA (Body Surface Area) 2.48 m2 09/19/2016 10:13am BP Systolic 134 mmHg BP Diastolic 76 mmHg Heart Rate 73 /min Respiratory Rate 18 /min Height 70 inches 5'10" Weight 292.00 lb O2 % BldC Oximetry 95 % BMI (Body Mass Index) 41.9 kg/m2 BSA (Body Surface Area) 2.45 m2 03/17/2016 10:26am BP Systolic 132 mmHg BP Diastolic 84 mmHg Heart Rate 75 /min Respiratory Rate 18 /min Height 70 inches 5'10" Weight 286.00 lb O2 % BldC Oximetry 96 % BMI (Body Mass Index) 41.0 kg/m2 BSA (Body Surface Area) 2.43 m2 10/19/2015 10:18am BP Systolic 138 mmHg BP Diastolic 82 mmHg Heart Rate 60 /min Respiratory Rate 20 /min Height 70 inches 5'10" Weight 275.00 lb O2 % BldC Oximetry 96 % BMI (Body Mass Index) 39.5 kg/m2 BSA (Body Surface Area) 2.39 m2 06/25/2015 9:57am BP Systolic 114 mmHg BP Diastolic 80 mmHg Heart Rate 74 /min Respiratory Rate 18 /min Height 70 inches 5'10" Weight 282.00 lb O2 % BldC Oximetry 94 % BMI (Body Mass Index) 40.5 kg/m2 BSA (Body Surface Area) 2.42 m2 03/09/2015 10:23am BP Systolic 130 mmHg BP Diastolic 84 mmHg Heart Rate 76 /min Respiratory Rate 18 /min Height 70 inches 5'10" Weight 292.00 lb O2 % BldC Oximetry 96 % BMI (Body Mass Index) 41.9 kg/m2 BSA (Body Surface Area) 2.45 m2 07/08/2014 9:25am BP Systolic 126 mmHg BP Diastolic 86 mmHg Heart Rate 74 /min Respiratory Rate 16 /min Height 70 inches 5'10" Weight 298.00 lb O2 % BldC Oximetry 96 % BMI (Body Mass Index) 42.8 kg/m2 BSA (Body Surface Area) 2.47 m2 08/07/2013 10:39am BP Systolic 140 mmHg BP Diastolic 90 mmHg BP Systolic Recheck 130 mmHg L Arm BP Diastolic Recheck 80 mmHg L Arm Heart Rate 73 /min Respiratory Rate 18 /min Height 70 inches 5'10" Weight 302.00 lb O2 % BldC Oximetry 94 % BMI (Body Mass Index) 43.3 kg/m2 BSA (Body Surface Area) 2.49 m2 10/16/2012 9:52am BP Systolic 138 mmHg BP Diastolic 84 mmHg Heart Rate 78 /min Respiratory Rate 20 /min Height 70 inches 5'10" Weight 295.00 lb O2 % BldC Oximetry 94 % BMI (Body Mass Index) 42.3 kg/m2 BSA (Body Surface Area) 2.46 m2 BP Systolic Sitting 138 mmHg BP Diastolic Sitting 84 mmHg BP Systolic Lying Down 140 mmHg BP Diastolic Lying Down 80 mmHg BP Systolic Standing 144 mmHg BP Diastolic Standing 90 mmHg 07/09/2012 3:29pm BP Systolic 130 mmHg BP Diastolic 86 mmHg Heart Rate 84 /min Respiratory Rate 20 /min Height 70 inches 5'10" Weight 304.00 lb O2 % BldC Oximetry 91 % BMI (Body Mass Index) 43.6 kg/m2 BSA (Body Surface Area) 2.49 m2 10/28/2011 1:54pm BP Systolic 144 mmHg BP Diastolic 84 mmHg Heart Rate 72 /min Respiratory Rate 18 /min Height 70 inches 5'10" Weight 310.00 lb O2 % BldC Oximetry 95 % BMI (Body Mass Index) 44.5 kg/m2 BSA (Body Surface Area) 2.51 m2 04/19/2011 11:05am BP Systolic 148 mmHg BP Diastolic 78 mmHg Heart Rate 74 /min Respiratory Rate 20 /min Height 70 inches 5'10" Weight 304.00 lb O2 % BldC Oximetry 94 % BMI (Body Mass Index) 43.6 kg/m2 BSA (Body Surface Area) 2.49 m2 10/21/2010 9:26am BP Systolic 134 mmHg BP Diastolic 80 mmHg Heart Rate 76 /min Respiratory Rate 16 /min Height 70 inches 5'10" Weight 284.00 lb O2 % BldC Oximetry 95 % BMI (Body Mass Index) 40.7 kg/m2 BSA (Body Surface Area) 2.42 m2 10/14/2010 9:11am BP Systolic 156 mmHg BP Diastolic 74 mmHg Heart Rate 69 /min Respiratory Rate 18 /min Height 70 inches 5'10" Weight 285.00 lb O2 % BldC Oximetry 95 % BMI (Body Mass Index) 40.9 kg/m2 BSA (Body Surface Area) 2.43 m2 05/31/2010 1:09pm BP Systolic 110 mmHg BP Diastolic 70 mmHg Heart Rate 64 /min Respiratory Rate 20 /min Height 70 inches 5'10" Weight 285.00 lb O2 % BldC Oximetry 94 % BMI (Body Mass Index) 40.9 kg/m2 BSA (Body Surface Area) 2.43 m2 09/24/2009 1:36pm BP Systolic 150 mmHg BP Diastolic 72 mmHg Heart Rate 76 /min Respiratory Rate 18 /min Weight 292.00 lb O2 % BldC Oximetry 95 % 01/29/2009 8:03am BP Systolic 168 mmHg Left, 150/86 After 10 Min BP Diastolic 96 mmHg Left, 150/86 After 10 Min BP Systolic Recheck 150 mmHg Right BP Diastolic Recheck 80 mmHg Right Heart Rate 94 /min Respiratory Rate 20 /min Weight 299.00 lb O2 % BldC Oximetry 95 % 01/15/2009 10:28am BP Systolic 150 mmHg BP Diastolic 90 mmHg Heart Rate 96 /min Respiratory Rate 20 /min Weight 287.00 lb O2 % BldC Oximetry 95 % 05/26/2008 3:18pm BP Systolic 130 mmHg BP Diastolic 90 mmHg Heart Rate 88 /min Respiratory Rate 20 /min Weight 302.00 lb O2 % BldC Oximetry 95 % 10/26/2007 1:46pm BP Systolic 120 mmHg BP Diastolic 70 mmHg Heart Rate 78 /min Respiratory Rate 20 /min Weight 300.00 lb O2 % BldC Oximetry 95 % 04/26/2007 3:30pm BP Systolic 118 mmHg BP Diastolic 70 mmHg Heart Rate 76 /min Respiratory Rate 18 /min Weight 285.00 lb O2 % BldC Oximetry 95 % 01/22/2007 3:46pm BP Systolic 118 mmHg BP Diastolic 80 mmHg Heart Rate 80 /min Respiratory Rate 16 /min Weight 300.00 lb 12/29/2006 2:46pm BP Systolic 150 mmHg BP Diastolic 88 mmHg Heart Rate 94 /min Respiratory Rate 16 /min Weight 308.00 lb O2 % BldC Oximetry 95 % Results Test Date Facility Test Result H/L Range Note Laboratory test finding 06/01/2010 [facility] A1[facility] 6.4 % High 4.8-6.0 Hepatic Funct Panel 06/01/2010 [facility] Total Protein 7.1 gm/dL 6.4-8.2 Albumin 4.5 gm/dL 3.4-4.8 Total Bilirubin 0.5 mg/dL 0.0-1.0 Direct Bilirubin 0.2 mg/dL 0.0-0.3 Alk Phos 49 U/L Low 50-136 Alt(SGPT) 34 U/L 0-41 Ast (Sgot) 24 U/L 15-37 Lipid Panel 06/01/2010 [facility] Cholesterol 136 mg/dL 120-200 Triglycerides 144 mg/dL 0-149 High Density Lipoprotein 37 mg/dL Low 40-60 Chol/HDL Ratio 3.7 Chol/HDL Reference Cholesterol/HDL <SEE NOTE> 1 LDL Direct 85 mg/dL 0-99 Very Low Density Lipoprotein 29 Basic Metabolic Panel 06/01/2010 [facility] Sodium 142 mmol/L 136-145 Potassium 4.4 mmol/L 3.6-5.2 Chloride 101 mmol/L 100-108 Carbon Dioxide 30 mmol/L 21-32 Glucose 118 mg/dL High 70-110 Glucose Range Header [employer] <SEE NOTE> 2 BUN 17 mg/dL 7-21 Creatinine 0.9 mg/dL 0.6-1.3 Calcium 9.7 mg/dL 8.5-10.8 GFR >60 GFR Reference Normal Kidney Fu <SEE NOTE> 3 CBC Diff 06/01/2010 [facility] WBC 7.4 K/uL 4.8-10.8 Red Blood Cell 4.91 M/uL 4.60-6.20 Hemoglobin 14.8 gm/dL 13.5-18.0 Hematocrit 41.7 % 41.0-53.0 MCV 85.0 fL 80.0-100.0 MCHC 35.4 % 30.0-36.5 MCH 30.1 pg 27.0-34.0 RDW 11.1 % 11.0-15.0 Platlet Count 211 K/uL 130-450 MPV 11.3 fL 6.0-12.0 Neutrophil 50 % 37-80 Lymphocyte 33 % 10-50 Monocyte 11 % 0-12 Eosinophil 5 % <=8 Basophil 1 % <=3 Francisco# 3.7 K/uL 1.8-8.6 Lymphocyte # 2.4 K/uL 0.5-5.0 Monocyte # 0.8 K/uL 0.0-1.3 Eosinophil # 0.4 K/uL 0.0-0.9 Basophil # 0.1 K.uL 0.0-0.3 Hepatic Function 04/21/2008 [facility] T Protein 7.4 gm/dL (6.4-8.2) Albumin 4.1 mg/dL (3.4-4.8) T Bili 0.53 mg/dL (0.00-1.00) Conj Bili 0.09 mg/dL (0.00-0.30) Alk Phos 58 U/L (50-136) Alt 51 U/L (30-65) Ast 24 U/L (15-37) 4 Lipid 04/21/2008 [facility] Cholesterol 163 mg/dL (120-200) 5 HDL Cholesterol 46.0 mg/dL (40-60) 6 Chol/HDL Ratio 3.5 7 Triglycerides 162 mg/dL High (0-149) 8 LDL/Measured 94 mg/dL (0-99) 9 Calc.VLDL 23 mg/dL 10 Hepatic Function 11/08/2007 [facility] T Protein 7.3 gm/dL (6.4-8.2) Albumin 4.0 mg/dL (3.4-4.8) T Bili 0.66 mg/dL (0.00-1.00) Conj Bili 0.12 mg/dL (0.00-0.30) Alk Phos 66 U/L (50-136) Alt 56 U/L (30-65) Ast 34 U/L (15-37) 11 Lipid 11/08/2007 [facility] Cholesterol 131 mg/dL (120-200) 12 HDL Cholesterol 35.0 mg/dL Low (40-60) 13 Chol/HDL Ratio 3.7 14 Triglycerides 178 mg/dL High (0-149) 15 LDL/Measured 71 mg/dL (0-99) 16 Calc.VLDL 25 mg/dL 17 Hepatic Function 07/05/2007 [facility] T Protein 6.9 gm/dL (6.4-8.2) Albumin 3.6 mg/dL (3.4-4.8) T Bili 0.33 mg/dL (0.00-1.00) Conj Bili 0.08 mg/dL (0.00-0.30) Alk Phos 57 U/L (50-136) Alt 53 U/L (30-65) Ast 24 U/L (15-37) 18 Lipid 07/05/2007 [facility] Cholesterol 132 mg/dL (120-200) 19 HDL Cholesterol 36.0 mg/dL Low (40-60) 20 Chol/HDL Ratio 3.7 21 Triglycerides 219 mg/dL High (0-149) 22 LDL/Measured 75 mg/dL (0-99) 23 Calc.VLDL 21 mg/dL 24 Lipid 05/10/2007 [facility] Cholesterol 159 mg/dL (120-200) 25 HDL Cholesterol 40.0 mg/dL (40-60) 26 Chol/HDL Ratio 4.0 27 Triglycerides 112 mg/dL (0-149) 28 LDL/Measured 102 mg/dL High (0-99) 29 Calc.VLDL 17 mg/dL 30 Hepatic Function 05/10/2007 [facility] T Protein 7.6 gm/dL (6.4-8.2) Albumin 3.9 mg/dL (3.4-4.8) T Bili 0.70 mg/dL (0.00-1.00) Conj Bili 0.15 mg/dL (0.00-0.30) Alk Phos 55 U/L (50-136) Alt 52 U/L (30-65) Ast 33 U/L (15-37) 31 Hepatic Function 03/08/2007 [facility] T Protein 7.5 gm/dL (6.4-8.2) Albumin 4.0 mg/dL (3.4-4.8) T Bili 0.60 mg/dL (0.00-1.00) Conj Bili 0.15 mg/dL (0.00-0.30) Alk Phos 59 U/L (50-136) Alt 48 U/L (30-65) Ast 27 U/L (15-37) 32 Lipid 03/08/2007 [facility] Cholesterol 149 mg/dL (120-200) 33 HDL Cholesterol 35.0 mg/dL Low (40-60) 34 Chol/HDL Ratio 4.3 35 Triglycerides 94 mg/dL (0-149) 36 LDL/Measured 95 mg/dL (0-99) 37 Calc.VLDL 19 mg/dL 38 Lipid 01/23/2007 [facility] Cholesterol 147 mg/dL (120-200) 39 HDL Cholesterol 35.0 mg/dL Low (40-60) 40 Chol/HDL Ratio 4.2 41 Triglycerides 148 mg/dL (0-149) 42 LDL/Measured 94 mg/dL (0-99) 43 Calc.VLDL 18 mg/dL 44 Hepatic Function 01/23/2007 [facility] T Protein 7.8 gm/dL (6.4-8.2) Albumin 4.1 mg/dL (3.4-4.8) T Bili 0.54 mg/dL (0.00-1.00) Conj Bili 0.13 mg/dL (0.00-0.30) Alk Phos 57 U/L (50-136) Alt 54 U/L (30-65) Ast 28 U/L (15-37) 45 CBC With Diff 12/29/2006 [facility] WBC Count 9.2 K/uL (4.8-10.8) RBC Count 4.69 m/uL (4.60-6.20) Hemoglobin 14.4 gm/dL (13.5-18.0) Hematocrit 41.1 % (41.0-53.0) MCV 87.6 fL (80.0-100.0) MCH 30.6 pg (27.0-34.0) MCHC 34.9 % (30.0-36.5) RDW 11.8 % (11.0-15.0) Platelet Count 239 K/uL (130-450) MPV 11.3 fL (6.0-12.0) 46 Diff Type AUTOMATED (DIFF) 47 Neutrophil 59 % (37.0-80.0) 48 Lymphocyte 29 % (10.0-50.0) 49 Monocyte 9 % (0.0-12.0) 50 Eosinophil 2 % (0.0-7.0) 51 Basophil 1 % (0.0-2.5) 52 RBC Comment 1+ ANISOCYTOSIS 53 Basic Metabolic Panel 12/29/2006 [facility] Glucose 107 mg/dL (70-110) BUN 15 mg/dL (7-21) Creatinine 0.9 mg/dL (0.6-1.3) Calcium 8.8 mg/dL (8.5-10.5) Sodium 134 mmol/L Low (136-145) Potassium 3.9 mmol/L (3.6-5.2) Chloride 99 mmol/L Low (100-108) Co2 29 mmol/L (21-32) GFR >90 ML/MIN/1.7 (>59) 54 GFR ( Amer) >90 ML/MIN/1.7 (>59) 55 GFR Interpretation <SEE NOTE> 56 1 Cholesterol/HDL Ratio Interpretation Risk : 1/2 Avg Avg 2x Avg 3x Avg Male : 3.43 4.97 9.50 23.99 Female : 3.27 4.44 7.05 11.04 2 The [place] [employer] recommends that the upper limit of the normal reference range for Glucose be 100 mg/dl. 3 Normal Kidney Function or Mild Disease - GFR >OR=60 Chronic Kidney Disease - GFR 15-59 Renal Failure - GFR < 15 Calculated (estimated) GFR is based on the MDRD Study equation, which assumes a steady state for creatinine. Estimated GFR may not be appropriate for medication dosing. 4 [place] [address] 5 TOTAL CHOLESTEROL NCEP Category <200 mg/dL Desirable 200-239 mg/dL Borderline >239 mg/dL High 6 HDL CONCENTRATION NCEP Category <40 mg/dL Low HDL >59 mg/dL High HDL 7 CHOLESTEROL/HDL RATIO INTERPRETATION Risk: 1/2 Avg Avg 2X Avg 3X Avg Male: 3.43 4.97 9.50 23.99 Female: 3.27 4.44 7.05 11.04 8 TRIGLYCERIDES NCEP Category <150 mg/dL Normal 150-199 mg/dL Borderline-High 200-499 mg/dL High >499 mg/dL Very High 9 LDL CONCENTRATION NCEP Category <100 mg/dL Optimal 100-129 mg/dL Above optimal 130-159 mg/dL Borderline-High 160-189 mg/dL High >189 mg/dL Very high 10 Reference range: <31 Testing performed by [address] [id number] 11 Testing performed by [address] [id number] 12 TOTAL CHOLESTEROL NCEP Category <200 mg/dL Desirable 200-239 mg/dL Borderline >239 mg/dL High 13 HDL CONCENTRATION NCEP Category <40 mg/dL Low HDL >59 mg/dL High HDL 14 CHOLESTEROL/HDL RATIO INTERPRETATION Risk: 1/2 Avg Avg 2X Avg 3X Avg Male: 3.43 4.97 9.50 23.99 Female: 3.27 4.44 7.05 11.04 15 TRIGLYCERIDES NCEP Category <150 mg/dL Normal 150-199 mg/dL Borderline-High 200-499 mg/dL High >499 mg/dL Very High 16 LDL CONCENTRATION NCEP Category <100 mg/dL Optimal 100-129 mg/dL Above optimal 130-159 mg/dL Borderline-High 160-189 mg/dL High >189 mg/dL Very high 17 Reference range: <31 Testing performed by [facility], [address] [place] [id number] ~Testing performed by [facility], [address] [place] [address],~[place] [address] 19 ~TOTAL CHOLESTEROL NCEP Category ~ <200 mg/dL Desirable ~ 200- 239 mg/dL Borderline ~ >239 mg/dL High 20 ~HDL CONCENTRATION NCEP Category ~ <40 mg/dL Low HDL ~ > 59 mg/dL High HDL 21 ~ CHOLESTEROL/HDL RATIO INTERPRETATION ~ Risk: 1/2 Avg Avg 2X Avg 3X Avg ~ Male: 3.43 4.97 9.50 23.99 ~Female: 3.27 4.44 7.05 11.04 22 ~ TRIGLYCERIDES NCEP Category ~ <150 mg/dL Normal ~ 150- 199 mg/dL Borderline-High ~ 200-499 mg/dL High ~ >499 mg/dL Very High 23 ~LDL CONCENTRATION NCEP Category ~ <100 mg/dL Optimal ~ 100- 129 mg/dL Above optimal ~ 130-159 mg/dL Borderline-High ~ 160-189 mg /dL High ~ >189 mg/dL Very high 24 Reference range: <31 ~Testing performed by [facility], [address] [place] [address],~[place] [address] 25 ~TOTAL CHOLESTEROL NCEP Category ~ <200 mg/dL Desirable ~ 200- 239 mg/dL Borderline ~ >239 mg/dL High 26 ~HDL CONCENTRATION NCEP Category ~ <40 mg/dL Low HDL ~ > 59 mg/dL High HDL 27 ~ CHOLESTEROL/HDL RATIO INTERPRETATION ~ Risk: 1/2 Avg Avg 2X Avg 3X Avg ~ Male: 3.43 4.97 9.50 23.99 ~Female: 3.27 4.44 7.05 11.04 28 ~ TRIGLYCERIDES NCEP Category ~ <150 mg/dL Normal ~ 150- 199 mg/dL Borderline-High ~ 200-499 mg/dL High ~ >499 mg/dL Very High 29 ~LDL CONCENTRATION NCEP Category ~ <100 mg/dL Optimal ~ 100- 129 mg/dL Above optimal ~ 130-159 mg/dL Borderline-High ~ 160-189 mg /dL High ~ >189 mg/dL Very high 30 Reference range: <31 ~Testing performed by [facility], [address] [place] [address],~[place] [address] 31 ~Testing performed by [address],[place] [address] 32 Testing performed by [address] [address] 33 TOTAL CHOLESTEROL NCEP Category <200 mg/dL Desirable 200-239 mg/dL Borderline >239 mg/dL High 34 HDL CONCENTRATION NCEP Category <40 mg/dL Low HDL >59 mg/dL High HDL 35 CHOLESTEROL/HDL RATIO INTERPRETATION Risk: 1/2 Avg Avg 2X Avg 3X Avg Male: 3.43 4.97 9.50 23.99 Female: 3.27 4.44 7.05 11.04 36 TRIGLYCERIDES NCEP Category <150 mg/dL Normal 150-199 mg/dL Borderline-High 200-499 mg/dL High >499 mg/dL Very High 37 LDL CONCENTRATION NCEP Category <100 mg/dL Optimal 100-129 mg/dL Above optimal 130-159 mg/dL Borderline-High 160-189 mg/dL High >189 mg/dL Very high 38 Reference range: <31 Testing performed by [address] [address] 39 TOTAL CHOLESTEROL NCEP Category <200 mg/dL Desirable 200-239 mg/dL Borderline >239 mg/dL High 40 HDL CONCENTRATION NCEP Category <40 mg/dL Low HDL >59 mg/dL High HDL 41 CHOLESTEROL/HDL RATIO INTERPRETATION Risk: 1/2 Avg Avg 2X Avg 3X Avg Male: 3.43 4.97 9.50 23.99 Female: 3.27 4.44 7.05 11.04 42 TRIGLYCERIDES NCEP Category <150 mg/dL Normal 150-199 mg/dL Borderline-High 200-499 mg/dL High >499 mg/dL Very High 43 LDL CONCENTRATION NCEP Category <100 mg/dL Optimal 100-129 mg/dL Above optimal 130-159 mg/dL Borderline-High 160-189 mg/dL High >189 mg/dL Very high 44 Reference range: <31 Testing performed by [address] [address] Testing performed by [address] [place] [address] 46 47 48 49 50 51 52 Testing performed by [facility], [address] [place] [id number] 53 54 55 56 NORMAL KIDNEY FUNCTION OR MILD DISEASE -- GFR >OR=60 CHRONIC KIDNEY DISEASE -- GFR 15-59 RENAL FAILURE -- GFR <15 Calculated(estimated) GFR is based on the MDRD Study equation, which assumes a steady state for creatinine. Estimated GFR may not be appropriate for medication dosing. Testing performed by [facility], [address] [place] [id number] Procedures Date Code Description Status 03/23/2018 70182 Electrocardiogram Complete Completed 09/21/2017 89691 Electrocardiogram Complete Completed 03/23/2017 92095 Electrocardiogram Complete Completed 09/19/2016 56637 Electrocardiogram Complete Completed 03/17/2016 43660 Electrocardiogram Complete Completed 10/19/2015 77846 Electrocardiogram Complete Completed 03/09/2015 00270 Electrocardiogram Complete Completed 07/08/2014 94280 Echocardiography Complete Completed 07/08/2014 69380 Electrocardiogram Complete Completed 08/07/2013 30624 Electrocardiogram Complete Completed 10/16/2012 58492 Nuclear Imaging Myocardial Mult Studies Incl Wall Completed Motion/Ef 10/16/2012 22086 Cardiovascular Stress Test W/Interpretation & Report Completed 10/28/2011 93705 Electrocardiogram Complete Completed 10/21/2010 58370 Cardiovascular Stress Test W/Interpretation & Report Completed 10/21/2010 01191 Nuclear Imaging Myocardial Mult Studies Incl Wall Completed Motion/Ef 10/14/2010 60420 Carotid Doppler Complete Completed 10/14/2010 48401 Carotid Doppler Complete Completed 10/14/2010 40994 Carotid Doppler Complete Completed 10/14/2010 86802 Carotid Doppler Complete Completed 10/14/2010 09938 Echocardiography Complete Completed 10/14/2010 76962 Electrocardiogram Complete Completed 09/24/2009 11865 Electrocardiogram Complete Completed 09/24/2009 00714 Echocardiography Complete Completed 02/04/2009 93002 Cardiovascular Stress Test W/Interpretation & Report Completed 02/04/2009 84851 Nuclear Myocardial Perfusion Study W/Ejection Fraction Completed 02/04/2009 84289 Nuclear Myocardial Perfusion Study W/Wall Motion Completed 02/04/2009 84081 Nuclear Imaging Myocardial Perfusion Tomographic Mult Completed Studies 05/26/2008 59135 Electrocardiogram Complete Completed 05/26/2008 78299 Electrocardiogram Complete Completed 10/26/2007 50645 Electrocardiogram Complete Completed 02/13/2007 76896 Nuclear Imaging Myocardial Perfusion Tomographic Mult Completed Studies 02/13/2007 67876 Nuclear Myocardial Perfusion Study W/Wall Motion Completed 02/13/2007 04851 Nuclear Myocardial Perfusion Study W/Ejection Fraction Completed 02/13/2007 79790 Cardiovascular Stress Test W/Interpretation & Report Completed 01/22/2007 70499 Electrocardiogram Complete Completed 01/03/2007 44837 Imaging Supervision Pulmonary/Coronary Angiography Completed 01/03/2007 77740 Imaging Supervision Ventricular/Atrial Angiography Completed 01/03/2007 57103 Injection For Coronary Angiography Completed 01/03/2007 59641 Injection For Left Ventricular Or Atrial Angiography Completed 01/03/2007 48933 Heart Catheterization Left Percutaneous Completed 01/03/2007 50287 Transcatheter Placement Intracoronary Stent Percut, Single Completed 12/29/2006 42190 Doppler ECHO Color Flow Velocity Mapping Completed 12/29/2006 37476 Doppler Echocardiography Complete Completed 12/29/2006 84401 Echocardiography w/o spectral and color flow Completed 12/29/2006 63433 Electrocardiogram Complete Completed Encounters Type Date Location Provider Dx Diagnosis Office Visit 03/23/2018 Barbara Ly MD I25.111 [facility] heart disease 10:00a of [place] art w ang pctrs w spasm I25.9 Chronic ischemic heart disease, unspecified Z95.5 Presence of coronary angioplasty implant and graft E11.9 Type 2 diabetes mellitus without complications E78.5 Hyperlipidemia, unspecified E66.09 Other obesity due to excess calories G47.33 Obstructive sleep apnea (adult) (pediatric) I10 Essential (primary) hypertension I11.9 Hypertensive heart disease without heart failure Office Visit 09/21/2017 10:00a Barbara Ly MD I25.111 [place] heart disease of [place] cor art w ang pctrs w spasm I25.9 Chronic ischemic heart disease, unspecified Z95.5 Presence of coronary angioplasty implant and graft E11.9 Type 2 diabetes mellitus without complications E78.5 Hyperlipidemia, unspecified E66.09 Other obesity due to excess calories G47.33 Obstructive sleep apnea (adult) (pediatric) I10 Essential (primary) hypertension I11.9 Hypertensive heart disease without heart failure Office Visit 03/23/2017 10:00a Barbara yL MD R60.9 Edema, unspecified R06.02 Shortness of breath I25.111 [place] heart disease of [place] art w ang pctrs w spasm I25.9 Chronic ischemic heart disease, unspecified Z95.5 Presence of coronary angioplasty implant and graft E11.9 Type 2 diabetes mellitus without complications E78.5 Hyperlipidemia, unspecified E66.09 Other obesity due to excess calories G47.33 Obstructive sleep apnea (adult) (pediatric) I10 Essential (primary) hypertension I11.9 Hypertensive heart disease without heart failure Office Visit 09/19/2016 10:30a Barbara Ly MD R60.9 Edema, unspecified R06.02 Shortness of breath I25.111 Athscl heart disease of [place] art w ang pctrs w spasm I25.9 Chronic ischemic heart disease, unspecified Z95.5 Presence of coronary angioplasty implant and graft E11.9 Type 2 diabetes mellitus without complications E78.5 Hyperlipidemia, unspecified E66.09 Other obesity due to excess calories G47.33 Obstructive sleep apnea (adult) (pediatric) Office Visit 03/17/2016 11:00a Barbara Ly MD R60.9 Edema, unspecified R06.02 Shortness of breath I25.111 Athscl heart disease of [place] art w ang pctrs w spasm I25.9 Chronic ischemic heart disease, unspecified Z95.5 Presence of coronary angioplasty implant and graft E11.9 Type 2 diabetes mellitus without complications E78.5 Hyperlipidemia, unspecified E66.09 Other obesity due to excess calories G47.33 Obstructive sleep apnea (adult) (pediatric) Office Visit 10/19/2015 10:30a Barbara Ly MD I25.111 Athscl heart disease of [place] art w ang pctrs w spasm I25.9 Chronic ischemic heart disease, unspecified Z95.5 Presence of coronary angioplasty implant and graft E78.5 Hyperlipidemia, unspecified E11.9 Type 2 diabetes mellitus without complications E66.09 Other obesity due to excess calories G47.33 Obstructive sleep apnea (adult) (pediatric) Office Visit 06/25/2015 10:30a Barbara Ly MD R60.9 Edema, unspecified R06.02 Shortness of breath I25.111 Athscl heart disease of [place] art w ang pctrs w spasm I25.9 Chronic ischemic heart disease, unspecified Z95.5 Presence of coronary angioplasty implant and graft E78.5 Hyperlipidemia, unspecified E11.9 Type 2 diabetes mellitus without complications E66.09 Other obesity due to excess calories Office Visit 03/09/2015 10:30a Barbara Ly MD R60.9 Edema, unspecified R06.02 Shortness of breath I25.111 Athscl heart disease of [place] art w ang pctrs w spasm I25.9 Chronic ischemic heart disease, unspecified Z95.5 Presence of coronary angioplasty implant and graft E78.5 Hyperlipidemia, unspecified E11.9 Type 2 diabetes mellitus without complications E66.09 Other obesity due to excess calories G47.33 Obstructive sleep apnea (adult) (pediatric) Office Visit 07/08/2014 10:30a Barbara Ly MD 413.9 Angina Pectoris Other Unspec 786.05 Shortness Of Breath 414.9 Ischemic Heart Disease Chronic Unspec V45.82 Percutaneous Transluminal Coronary Angioplas Postsurg Status 272.4 Hyperlipidemia Other Unspec 250.00 Diabetes Mellitus W/O Compl Type II Or Unspec Controlled 278.00 Obesity Unspec Office Visit 08/07/2013 11:00a Barbara Ly MD 414.9 Ischemic Heart Disease Chronic Unspec V45.82 Percutaneous Transluminal Coronary Angioplas Postsurg Status 272.4 Hyperlipidemia Other Unspec 250.00 Diabetes Mellitus W/O Compl Type II Or Unspec Controlled 278.00 Obesity Unspec 786.05 Shortness Of Breath 413.9 Angina Pectoris Other Unspec 414.8 Ischemic Heart Disease Chronic Other Spec Forms 402.00 Hypertensive Heart Disease W/O Congestive Heart Failure Office Visit 07/09/2012 3:45p Barbara Swanson, 414.9 Ischemic Heart M.D. Disease Chronic Unspec V45.82 Percutaneous Transluminal Coronary Angioplas Postsurg Status 402.00 Hypertensive Heart Disease W/O Congestive Heart Failure 272.4 Hyperlipidemia Other Unspec 250.00 Diabetes Mellitus W/O Compl Type II Or Unspec Controlled 278.00 Obesity Unspec 786.05 Shortness Of Breath Office Visit 10/28/2011 2:00p Barbara Swanson, 414.9 Ischemic Heart M.D. Disease Chronic Unspec V45.82 Percutaneous Transluminal Coronary Angioplas Postsurg Status 402.00 Hypertensive Heart Disease W/O Congestive Heart Failure 272.4 Hyperlipidemia Other Unspec 250.00 Diabetes Mellitus W/O Compl Type II Or Unspec Controlled 278.00 Obesity Unspec 786.05 Shortness Of Breath Office Visit 04/19/2011 11:00a Barbara Swanson, 414.9 Ischemic Heart M.D. 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 Disease Chronic Unspec V45.82 Percutaneous Transluminal Coronary Angioplas Postsurg Status 402.00 Hypertensive Heart Disease W/O Congestive Heart Failure 272.4 Hyperlipidemia Other Unspec 250.00 Diabetes Mellitus W/O Compl Type II Or Unspec Controlled 278.00 Obesity Unspec Office Visit 09/24/2009 2:30p Barbara Swanson, 414.9 Ischemic Heart M.D. Disease Chronic Unspec 402.00 Hypertensive Heart Disease W/O Congestive Heart Failure 278.00 Obesity Unspec 250.00 Diabetes Mellitus W/O Compl Type II Or Unspec Controlled 272.4 Hyperlipidemia Other Unspec Office Visit 01/15/2009 11:00a Barbara Swanson V45.82 Percutaneous M.D. Transluminal Coronary Angioplas Postsurg Status 414.8 Ischemic Heart Disease Chronic Other Spec Forms 272.4 Hyperlipidemia Other Unspec 402.00 Hypertensive Heart Disease W/O Congestive Heart Failure 278.00 Obesity Unspec 250.00 Diabetes Mellitus W/O Compl Type II Or Unspec Controlled Office Visit 05/26/2008 3:30p [place] [facility] V45.82 Percutaneous Transluminal Coronary Angioplas Postsurg Status 414.8 Ischemic Heart Disease Chronic Other Spec Forms 272.4 Hyperlipidemia Other Unspec 402.00 Hypertensive Heart Disease W/O Congestive Heart Failure Office Visit 10/26/2007 2:15p Barbara Swanson, 414.8 Ischemic Heart M.D. Disease Chronic Other Spec Forms 402.00 Hypertensive Heart Disease W/O Congestive Heart Failure 272.4 Hyperlipidemia Other Unspec V45.82 Percutaneous Transluminal Coronary Angioplas Postsurg Status Office Visit 04/26/2007 3:45p Barbara Swanson, 414.8 Ischemic Heart M.D. Disease Chronic Other Spec Forms 402.00 Hypertensive Heart Disease W/O Congestive Heart Failure 272.4 Hyperlipidemia Other Unspec V45.82 Percutaneous Transluminal Coronary Angioplas Postsurg Status Office Visit 01/22/2007 4:15p Barbara Swanson M.D. 786.50 Pain Chest Unspec 272.4 Hyperlipidemia Other Unspec 414.8 Ischemic Heart Disease Chronic Other Spec Forms 402.00 Hypertensive Heart Disease W/O Congestive Heart Failure V45.82 Percutaneous Transluminal Coronary Angioplas Postsurg Status Office Visit 12/29/2006 3:00p Barbara Swanson M.D. 786.50 Pain Chest Unspec 786.05 Shortness Of Breath 278.00 Obesity Unspec 402.00 Hypertensive Heart Disease W/O Congestive Heart Failure Plan of Treatment Future Appointment(s):12/24/2018 10:20 am - Estelle Ly MD at [id number] - Estelle Ly MDI25.111 [place] heart disease of [place] art w ang pctrs w ghfpyT06.9 Chronic ischemic heart disease, fescqdkwlyhR96.5 Presence of coronary angioplasty implant and lygcyU01.9 Type 2 diabetes mellitus without yxxtkpliidmmfI81.5 Hyperlipidemia, zzizlyilqbmE86.09 Other obesity due to excess etqibdnaN45.33 Obstructive sleep apnea (adult) (pediatric)I10 Essential ( primary) zxfwhnwzjvotG40.9 Hypertensive heart disease without heart failureRecommendations:1. I reviewed patient's clinical history and discussed in comprehensive details the findings on examination. 2. Overall, based on all pertinent clinical information, history, examination, and observation, patient not in acute decompensation. 3. Reviewed all prior cardiovascular work ups including today's EKG, prior NMPI, EKG, and prior echocardiogram and cath report in '07 report and it's significance discussed with patient. 4. BP within normal range. 5. Continue HCTZ at 12.5 mg daily . 6. Discussed and emphasized with the patient how to recognize anginal symptoms, the proper use of nitroglycerin, and the need to seek medical help in case of persistent chest pain despite the use of nitroglycerin. 7. Discussed and educated how to detect signs and symptoms of angina and angina equivalent. Discussed in details findings on old cath report in 2006 and natural history of stents and [place] coronary arteries. Educated how to detect signs and symptoms of angina, stable vs unstable vs angina equivalent and to report accordingly. 8. Lipid management in general explained, current lipid therapy and recent values reviewed and advised present medical therapy. Side effects of patient's statin therapy explained. No recent profile available. Target LDL < 70 and TG < 150 mg/ dL. 9. Patient was educated for heart failure symptoms such as orthopnea, PND and persistent leg edema including management were reviewed thoroughly, taking current dose of medication, daily weights, dietary restriction of calories, low salt. If any increased swelling, fluid retention, taking additional diuretics, and seekinghelp. 10. Emphasized the importance of lifestyle changes, reduced calories, low carbohydrate diet, effort to lose weight and achieve ideal body weight and improve overall well being and advised continuation of medications as outlined below. 11. At this time, patient was advised continuation of current medications. 12. If there is sudden change in condition, development of symptoms, patient was advised to seek prompt medical help. 13. Regular cardiovascular follow-up in 9 months or earlier if needed.
[2018-04-16] MEDS ORDERED: Morphine VIAL* 4 MG/ML VIAL (1 ml vial) IV ONE (19:54)
[2018-04-16] MEDS ORDERED: Ondansetron INJ* 2 MG/ML VIAL IV ONE (19:55)
--- NOTE | 2018-04-16 20:04 | ED ---
Lower Extremity - HPI Summary HPI Summary: This patient is a 67 year old M presenting to [facility] with a chief complaint of edema and pain in his right thigh since earlier this afternoon. The patient also complains of right-sided back pains for the last few days. 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 He rates his thigh pain 10/10 in severity. The patient has a Hx of kidney stones. - History of Current Complaint Chief Complaint: EDBackInjuryPain Stated Complaint: BACK PAIN/ GROIN PAIN Time Seen by Provider: 04/16/18 19:39 Hx Obtained From: Patient Onset of Pain: Hours, Prior to Arrival Onset/Duration: Hours Pain Intensity: 10 Pain Scale Used: 0-10 Numeric Timing: Constant Location: Is Discrete @ - Right proximal thigh Associated Signs And Symptoms: Positive: Swelling - Allergies/Home Medications Allergies/Adverse Reactions: Allergies Allergy/AdvReac Type Severity Reaction Status Date / Time No Known Allergies Allergy Verified 04/16/18 19:30 Home Medications: Home Medications Aspirin 81 mg PO DAILY 04/16/18 [History Confirmed 04/16/18] Cyanocobalamin TAB* [Vitamin B12 TAB*] 1,000 mcg PO DAILY 04/16/18 [History Confirmed 04/16/18] Multivitamin [Multivitamins] 1 cap PO DAILY 04/16/18 [History Confirmed 04/16/18 ] PMH/Surg Hx/FS Hx/Imm Hx Endocrine/Hematology History: Reports: Hx Diabetes Denies: Hx Anticoagulant Therapy, Hx Sickle Cell Disease, Hx Anemia Cardiovascular History: Reports: Hx Hypertension, Other Cardiovascular Problems/ Disorders - stent placement Denies: Hx Aneurysm, Hx Angina, Hx Angioplasty, Hx Cardiac Arrest, Hx Cardiomegaly Respiratory History: Denies: Hx Asthma, Hx Chronic Bronchitis, Hx Chronic Obstructive Pulmonary Disease (COPD), Hx Cystic Fibrosis GI History: Denies: Hx Cirrhosis, Hx Crohn's Disease, Hx Gastroesophageal Reflux Disease History: Reports: Hx Kidney Stones Denies: Hx Acute Renal Failure Musculoskeletal History: Denies: Hx Arthritis, Hx Back Problems, Hx Bursitis Sensory History: Reports: Hx Contacts or Glasses Denies: Hx Eye Injury, Hx Hearing Aid Opthamlomology History: Reports: Hx Contacts or Glasses Denies: Hx Eye Injury Neurological History: Denies: Hx Dementia, Hx Developmental Delay, Hx Headaches, Hx Migraine, Hx Nerve Disease, Hx Seizures, Hx Spinal Cord Injury, Hx Transient Ischemic Attacks (TIA) Psychiatric History: Denies: Hx Depression - Surgical History Surgery Procedure, Year, and Place: cardiac stent - 2000,kidney stones,right arm ; Infectious Disease History: No Infectious Disease History: Denies: Hx Clostridium Difficile, Hx Hepatitis, Hx Human Immunodeficiency Virus (HIV), Hx of Known/Suspected MRSA, Hx Shingles, Hx Tuberculosis, History Other Infectious Disease, Traveled Outside the [place] in Last 30 Days - Family History Known Family History: Positive: Cardiac Disease, Renal Disease - brother had kidney stones - Social History Alcohol Use: Rare Substance Use Type: Reports: None Smoking Status (MU): Never Smoked Tobacco Review of Systems Negative: Fever Positive: Myalgia - Back pain, Edema - Right thigh, Other - Pain right thigh All Other Systems Reviewed And Are Negative: Yes Physical Exam - Summary Physical Exam Summary: VITAL SIGNS: Reviewed. GENERAL: Patient is a well-developed and nourished MALE who is lying comfortable in the stretcher. Patient is not in any acute respiratory distress. HEAD AND FACE: No signs of trauma. No ecchymosis, hematomas or skull depressions. No sinus tenderness. EYES: PERRLA, EOMI x 2, No injected conjunctiva, no nystagmus. EARS: Hearing grossly intact. Ear canals and tympanic membranes are within normal limits. MOUTH: Oropharynx within normal limits. NECK: Supple, trachea is midline, no adenopathy, no JVD, no carotid bruit, no c- spine tenderness, neck with full ROM. CHEST: Symmetric, no tenderness at palpation LUNGS: Clear to auscultation bilaterally. No wheezing or crackles. CVS: Regular rate and rhythm, S1 and S2 present, no murmurs or gallops appreciated. Bilateral varicose veins. ABDOMEN: Soft, non-tender. No signs of distention. No rebound no guarding, and no masses palpated. Bowel sounds are normal. EXTREMITIES: FROM in all major joints, no edema, no cyanosis or clubbing. Tenderness over the proximal right thigh. Tenderness over the right side of the back. Bilateral leg raise test negative. NEURO: Alert and oriented x 3. No acute neurological deficits. Speech is normal and follows commands. SKIN: Dry and warm Triage Information Reviewed: Yes Vital Signs On Initial Exam: Initial Vitals Temp Pulse Resp BP Pulse Ox 98.5 F 64 16 143/65 97 04/16/18 19:28 04/16/18 19:28 04/16/18 19:28 04/16/18 19:28 04/16/18 19:28 Vital Signs Reviewed: Yes Diagnostics - Vital Signs Vital Signs Temp Pulse Resp BP Pulse Ox 04/16/18 19:28 98.5 F 64 16 143/65 97 - Laboratory Result Diagrams: 04/16/18 20:23 04/16/18 20:23 Lab Statement: Any lab studies that have been ordered have been reviewed, and results considered in the medical decision making process. - CT CT ABD pelvis CT Interpretation Completed By: Radiologist Summary of CT Findings: 1. No CT findings to correlate with patient's symptomatology. Specifically no. obstructing renal or ureteral calculi. 2. Findings suggest chronic vesicoureteral reflux mildly increased compared to. prior. ED physician has reviewed this radiology report. - Additional Comments Diagnostic Additional Comments: Venous doppler study reveals, per radiologist, No bilateral lower extremity deep vein thrombosis. ED physician has reviewed this radiology report. Lower Extremity Course/Dx - Course Assessment/Plan: Venous doppler study reveals, per radiologist, No bilateral lower extremity deep vein thrombosis. CT ABD/Pelvis reveals, per radiologist, 1. No CT findings to correlate with patient's symptomatology. Specifically no. obstructing renal or ureteral calculi. 2. Findings suggest chronic vesicoureteral reflux mildly increased compared to. prior. Bloodwork and UA were not significant. Pt was given morphine and zofran in the ED. Discharged with rx for percocet and will f/u with PCP. - Diagnoses Provider Diagnoses: Right thigh pain Discharge - Sign-Out/Discharge Documenting (check all that apply): Patient Departure - Discharge Plan Condition: Stable Disposition: HOME Prescriptions: Oxycodone/ASA 5/325 (NF) [Percodan 5/325 (NF)] 1 tab PO Q6H PRN #14 tab MDD 4 PRN Reason: Pain Patient Education Materials: Leg Pain (ED) Referrals: Stacy Ramon MD [Primary Care Provider] - 2 Days Additional Instructions: RETURN TO THE EMERGENCY DEPARTMENT FOR CHANGING OR WORSENING SYMPTOMS - Attestation Statements Document Initiated by Scribe: Yes Documenting Scribe: Jerome Harman Provider For Whom Scribe is Documenting (Include Credential): Jacob Chen MD Scribe Attestation: I, Jerome Beshara, scribed for Jacob Chen MD on 04/16/18 at 2241. Status of Scribe Document: Ready
[2018-04-16 20:32] LABS: ABS Basophils 0.1 10^3/ul (0-0.2); ABS Eosinophils 0.1 10^3/ul (0-0.6); ABS Lymphocytes 2.5 10^3/ul (1.0-4.8); ABS Monocytes 0.8 10^3/ul (0-0.8); ABS Neutrophils 6.5 10^3/ul (1.5-7.7); ABS Nucleated RBC 0 10^3/ul; Eosinophil % 1.1 %; Hematocrit 42 % (42-52); Hemoglobin 14.3 g/dl (14.0-18.0); Lymphocyte % 24.8 %; Mean Corpuscular HGB Conc 34 g/dl (31-36); Mean Corpuscular Hemoglobin 30 pg (27-31); Mean Corpuscular Volume 88 fL (80-94); Mean Platelet Volume 8.9 fL (7.4-10.4); Nucleated Red Blood Cells % 0.1; Platelet Count 256 10^3/ul (150-450); Red Blood Count 4.76 10^6/ul (4.00-5.40); Red Cell Distribution Width 13 % (10.5-15)
[2018-04-16 20:34] LABS: Urine Appearance Clear; Urine Bilirubin Negative (Negative); Urine Blood Negative (Negative); Urine Color Yellow; Urine Glucose Negative (Negative); Urine Ketones Negative (Negative); Urine Nitrite Negative (Negative); Urine Protein Negative (Negative); Urine Specific Gravity 1.016 (1.010-1.030); Urine Urobilinogen Negative (Negative)
[2018-04-16 20:44] LABS: Activated Partial Thrombo Time 26.1 seconds (26.0-36.3); INR 0.97 (0.77-1.02)
[2018-04-16 20:48] LABS: Albumin 4.7 g/dL (3.2-5.2); Albumin/Globulin Ratio 1.8 (1-3); BUN/Creatinine Ratio 24.2 (8-20); Calcium 9.9 mg/dL (8.6-10.3); EGFR Non-African American 79.1 (>60); Globulin 2.6 g/dL (2-4); Magnesium 1.9 mg/dL (1.9-2.7); Total Bilirubin 0.7 mg/dL (0.2-1.0); Total Protein 7.3 g/dL (6.4-8.9)
[2018-04-16 22:55] VITALS: BP 116/71
== END 2018-04-16 22:54 | disposition home or self-care (01) ==
LOC: ED 19:26
DX: M79.651 Pain in right thigh (principal); M54.5 Low back pain; I25.10 Atherosclerotic heart disease of native coronary artery without angina pectoris; I10 Essential (primary) hypertension; Z95.5 Presence of coronary angioplasty implant and graft; Z79.82 Long term (current) use of aspirin; Z87.442 Personal history of urinary calculi; Z82.49 Family history of ischemic heart disease and other diseases of the circulatory system; Z84.1 Family history of disorders of kidney and ureter
CPT/HCPCS: 36415; 74176; 80053; 81003; 83735; 85025; 85610; 85730; 93970; 96374; 96375; 99283; J2270; J2405

== ENCOUNTER 2018-11-12 06:19 | Day surgery (SDC) | payer OTHER ==
[~2018-11-12 06:19] MED LIST: Acetaminophen TAB* 325 MG PO PRN
[2018-11-12] MEDS ORDERED: Midazolam* 1 MG/ML 2 ML VIAL (2 MG) ONE ×2 (07:27→07:28)
[2018-11-12 08:35] VITALS: BP 139/81
--- NOTE | 2018-11-12 08:43 | OP ---
DATE OF OPERATION: 11/12/18 - [facility] DATE OF : 11/12/18 SURGEON: Ino Marcos MD ANESTHESIA: Monitored anesthesia care. PREOPERATIVE DIAGNOSIS: Cataract, right eye. POSTOPERATIVE DIAGNOSIS: Cataract, right eye. OPERATIVE PROCEDURE: Extracapsular cataract extraction of the right eye with intraocular lens implant. IMPLANT: SN60WF 20.5 diopter lens to the right eye. COMPLICATIONS: None. DESCRIPTION OF PROCEDURE: The patient was given phenylephrine 2.5 % and cyclopentolate 1% eye drops to the operative eye in the preoperative area. The patient was taken to the operating room where a time-out was taken to identify the correct patient, site, and side of surgery. The patient's right eye was prepped and draped in the usual sterile fashion with 5% Betadine. A second time- out was taken to verify the correct patient, side, and site of surgery, as well as the correct lens implant. A lid speculum was placed to the right eye. A 1 mm paracentesis blade was used to make a clear corneal incision. Preservative-free 1% lidocaine was injected into the anterior chamber. DisCoVisc was then injected into the anterior chamber. A 2.75 mm keratome blade was used to make a triplanar incision. A cystotome initiated a capsulorrhexis, which was completed with Utrata forceps in a continuous and curvilinear manner. Hydrodissection of the lens was performed with BSS on a cannula. The lens could be spun in a capsular bag. The phacoemulsification handpiece was used with a divide-and- conquer technique to remove the nucleus. The I/A handpiece then removed the residual cortical lens material. DisCoVisc was injected to inflate the capsular bag. The planned SN60WF 20.5 diopter lens was injected into the capsular bag. The residual DisCoVisc was removed from the eye with the I/A handpiece. The corneal incisions were hydrated and no leaks occurred at physiologic pressure around 20 mmHg per palpation. The lid speculum was removed and drapes were removed. Maxitrol ointment was placed to the surface of the operative eye. An adhesive patch and shield was then placed on the operative eye. The patient was taken to the postoperative area in stable condition. [id number]/[facility] #: [id number] [facility]
[2018-11-12] MEDS ORDERED: Cyclopentolate 1% OPTH.SOL* 2 ML BTL ONE (10:00)
[2018-11-12] MEDS ORDERED: Phenylephrine OPHTH SOL 2.5%* 2 ML ONE (10:00)
[2018-11-12] MEDS ORDERED: Povidone Iodine 5% OPTH* 30 ML BTL ONE (10:00)
[2018-11-12] MEDS ORDERED: Tropicamide 1% OPTH.SOL* BTL ONE (10:00)
[2018-11-12] MEDS ORDERED: Neomycin/Polymy/Dex OPHTH.OIN* 3.5 GM ONE (10:00)
[2018-11-12] MEDS ORDERED: Lidocaine 1% MPF ** 5 ML VIAL ONE (10:00)
[2018-11-12] MEDS ORDERED: Ketorolac 0.5% OPHTH (NF) 0.5 % 5 ML BTL ONE (10:00)
[2018-11-12] MEDS ORDERED: acetaZOLAMIDE TAB* 250 MG ONE (10:00)
[2018-11-12] MEDS ORDERED: Tetracaine 0.5% OPTH.SOL 4 ML* 1 DROP BTL ONE (10:00)
== END 2018-11-12 08:20 | disposition home or self-care (01) ==
LOC: OREAST 06:19
PROVIDERS: ATTEND Student in an Organized Health Care Education/Training Program
DX: H25.11 Age-related nuclear cataract, right eye (principal); E11.9 Type 2 diabetes mellitus without complications; Z79.84 Long term (current) use of oral hypoglycemic drugs; I10 Essential (primary) hypertension; E78.00 Pure hypercholesterolemia, unspecified; E78.2 Mixed hyperlipidemia; G47.33 Obstructive sleep apnea (adult) (pediatric)
CPT/HCPCS: A9270-GY; J2250; V2632

== ENCOUNTER 2018-11-19 06:58 | Day surgery (SDC) | payer OTHER ==
[~2018-11-19 06:58] MED LIST changes: -Acetaminophen TAB* 325 MG PO PRN; +Cyclopentolate 1% OPTH.SOL* 2 ML BTL ONE; +Ketorolac 0.5% OPHTH (NF) 0.5 % 5 ML BTL ONE; +Lidocaine 1% MPF ** 5 ML VIAL ONE; +Neomycin/Polymy/Dex OPHTH.OIN* 3.5 GM ONE; +Phenylephrine OPHTH SOL 2.5%* 2 ML ONE; +Povidone Iodine 5% OPTH* 30 ML BTL ONE; +Tetracaine 0.5% OPTH.SOL 4 ML* 1 DROP BTL ONE; +Tropicamide 1% OPTH.SOL* BTL ONE; +acetaZOLAMIDE TAB* 250 MG ONE
[2018-11-19] MEDS ORDERED: Midazolam* 1 MG/ML 2 ML VIAL (2 MG) ONE ×2 (07:59→08:29)
[2018-11-19 09:38] VITALS: BP 122/68
--- NOTE | 2018-11-19 11:06 | OP ---
DATE OF OPERATION: 11/19/18 - [facility] DATE OF : 50 SURGEON: Ino Marcos MD. ANESTHESIA: Monitored anesthesia care. PREOPERATIVE DIAGNOSIS: Cataract, left eye. POSTOPERATIVE DIAGNOSIS: Cataract, left eye. OPERATIVE PROCEDURE: Extracapsular cataract extraction of the left eye with intraocular lens implant. IMPLANT: SN60WF 20.5 diopter lens to the left eye. COMPLICATIONS: None. DESCRIPTION OF PROCEDURE: The patient was given phenylephrine 2.5 % and cyclopentolate 1% eye drops to the operative eye in the preoperative area. The patient was taken to the operating room where a time-out was taken to identify the correct patient, site, and side of surgery. The patient's left eye was prepped and draped in the usual sterile fashion with 5% Betadine. A second time- out was taken to verify the correct patient, side, and site of surgery, as well as the correct lens implant. A lid speculum was placed to the left eye. A 1mm paracentesis blade was used to make a clear corneal incision. Preservative-free 1% lidocaine was injected into the anterior chamber. DisCoVisc was then injected into the anterior chamber. A 2.75 mm keratome blade was used to make a triplanar incision. A cystotome initiated a capsulorrhexis, which was completed with Utrata forceps in a continuous and curvilinear manner. Hydrodissection of the lens was performed with BSS on a cannula. The lens could be spun in a capsular bag. The phacoemulsification handpiece was used with a divide-and- conquer technique to remove the nucleus. The I/A handpiece then removed the residual cortical lens material. DisCoVisc was injected to inflate the capsular bag. The planned SN60WF 20.5 diopter lens was injected into the capsular bag. The residual DisCoVisc was removed from the eye with the I/A handpiece. The corneal incisions were hydrated and no leaks occurred at physiologic pressure around 20 mmHg per palpation. The lid speculum was removed and drapes were removed. Maxitrol ointment was placed to the surface of the operative eye. An adhesive patch and shield was then placed on the operative eye. The patient was taken to the postoperative area in stable condition. [id number]/[facility] #: [id number] [facility]
== END 2018-11-19 09:10 | disposition home or self-care (01) ==
LOC: OREAST 06:58
PROVIDERS: ATTEND Student in an Organized Health Care Education/Training Program
DX: H25.12 Age-related nuclear cataract, left eye (principal); E11.9 Type 2 diabetes mellitus without complications; Z79.84 Long term (current) use of oral hypoglycemic drugs; I10 Essential (primary) hypertension; E78.00 Pure hypercholesterolemia, unspecified; E78.2 Mixed hyperlipidemia; G47.33 Obstructive sleep apnea (adult) (pediatric); Z95.5 Presence of coronary angioplasty implant and graft; Z87.442 Personal history of urinary calculi
CPT/HCPCS: A9270-GY; J2250; V2632